=== PATIENT | male | born 1935 | race Caucasian/White ===

== ENCOUNTER 2018-07-29 14:12 | Inpatient (IN) | payer MEDICARE ==
[~2018-07-29 14:12] MED LIST: Iopamidol 370 76% 100 ML VIAL ONE; Iopamidol 370 76% 50 ML VIAL FS ONE
[2018-07-29] MEDS ORDERED: Morphine 4 MG/ML VIAL SLOW IVP PRN (15:24)
[2018-07-29] MEDS ORDERED: Aggrastat 12.5 MG/250 ML 250 ML IVPB SCH (15:30)
[2018-07-29] MEDS ORDERED: Sodium Chloride 0.9% 1,000 ML IV SCH (15:30)
[2018-07-29] MEDS ORDERED: DOPamine 400 MG/D5W 250 ML 250 ML IVPB SCH (15:30)
--- NOTE | 2018-07-29 20:00 | HP ---
CHIEF COMPLAINT: Chest pain. HISTORY OF PRESENT ILLNESS: Mr. Rendon is a very pleasant 82-year-old white gentleman, who comes to the hospital as a transferred from [place] for an inferior ST-elevation MA. He came in for 2-hour episode of chest pain, heaviness in the midsternal area to the left arm. He presented to the ER, showed ST elevations in [place], and he was airlifted over. He was taken directly from the [facility] to the finishing lab technician and imaging showed an occluded RCA, which was wired and stented with bare metal stents. Imaging of the left coronary system showed severe LAD disease and left circumflex disease that will need revascularization, may be a complex PCI versus bypass. Mr. Rendon did well during the procedure. He had two 3.0 stents placed in his RCA and his pain improved, resolved. His bradycardia also resolved. His STs resolved as well. PAST MEDICAL HISTORY: 1. Coronary artery disease with previous stent to the LAD in 1997. 2. Hypertension. 3. Hyperlipidemia. 4. Type 2 diabetes. PAST SURGICAL HISTORY: 1. Back surgery x2. 2. Ruptured Achilles tendon repair. 3. Bilateral eyelid lift. ALLERGIES: 1. PENICILLINS. 2. AMOXICILLIN. 3. CLAVULANIC ACID. 4. EXENATIDE. 5. ITRACONAZOLE. HOME MEDICATIONS: Include:. 1. Insulin. 2. Metoprolol tartrate 25 mg half a tablet twice a day. 3. Lisinopril 20 mg quarter of a tablet a day. 4. Aspirin 325 half a tablet a day. SOCIAL HISTORY: No alcohol, tobacco, or drugs. FAMILY HISTORY: Noncontributory. REVIEW OF SYSTEMS: A 12-point review of systems was done and was all negative unless stated in the history of present illness. PHYSICAL EXAMINATION: VITAL SIGNS: Temperature 97.2, pulse 70, respiratory rate 18, and saturating 98% on room. GENERAL: Awake, alert, and oriented x3. No distress. HEENT: Normocephalic and atraumatic. NECK: Supple. LUNGS: Clear. CARDIOVASCULAR: S1 and S2. No S3 or S4. There is a grade 3/6 systolic murmur in the left sternal border. ABDOMEN: Soft. Positive bowel sounds. EXTREMITIES: No edema. SKIN: Warm and dry. LABORATORY DATA: Laboratory work was reviewed. CBC unremarkable except for hemoglobin of 13, hematocrit 40, and platelets of 204. Coags were reviewed. Chemistries were reviewed. Creatinine 1.56 and glucose of 127. Troponin initially is 0.13. Lipase was 9. EKG was reviewed, inferior ST elevation. ASSESSMENT AND PLAN: 1. Acute inferior ST-elevation myocardial infarction. 2. Coronary artery disease, multivessel. 3. Status post bare-metal stent to the right coronary artery. 4. Cardiogenic shock, improving. 5. Hypertension. 6. Hyperlipidemia. 7. Type 2 diabetes. PLAN: 1. Admit to ICU. 2. We will continue Aggrastat for 2 hours and then Brilinta should be loaded and we will plan on pulling the sheath 1 hour after that. 3. He will need a staged procedure either a hybrid with bypass of the left coronary system versus complex PCI. 4. Blood pressure is too low at this time for beta garrett or SHEFALI inhibitor. We will restart in the next few days. 5. Insulin sliding scale. 6. Full code. 7. PPI for stress ulcer prophylaxis. 8. Subcutaneous Lovenox for DVT prophylaxis. 9. primary personal shopper, will follow up in the morning. Job ID: [id number]
[2018-07-29 20:56] LABS: Troponin I 25.819 ng/mL (< 0.028)
[2018-07-29 21:14] LABS: CKMB 148.3 ng/mL (0-6.6)
[2018-07-29] MEDS ORDERED: Dextrose 50% Abboject 50 ML SYRINGE IVP PRN (22:09)
[2018-07-29] MEDS ORDERED: Dextrose 5% in Water 1,000 ML IV PRN (22:09)
[2018-07-29] MEDS ORDERED: Ondansetron PF 4 MG/2 ML Vial SLOW IVP PRN (22:10)
[2018-07-29] MEDS: TICAGRELOR 90 MG TABLET PO SCH (23:00)
[2018-07-30 00:05] LABS: CKMB 154.9 ng/mL (0-6.6); Troponin I 33.624 ng/mL (< 0.028)
[2018-07-30 05:07] LABS: #Lymphocytes 1.7 thou/uL (1.20-3.40); #Monocytes 1.2 thou/uL (0.11-0.59); #Neutrophils 10.4 thou/uL (1.40-6.50); %Basophils 0.2 % (0.0-1.0); %Eosinophils 0.3 % (0.0-10.0); %Lymphocytes 12.8 % (21.0-51.0); %Monocytes 8.8 % (0.0-10.0); %Neutrophils 77.9 % (42.0-75.0); Mean Corpuscular Hemoglobin 32.2 pg (27.0-31.0); Mean Corpuscular Volume 94.7 fL (78.0-98.0); Platelet Count 183 thou/uL (130-400); Red Blood Cell (RBC) Count 4.06 mill/uL (4.70-6.10); White Blood Cell (WBC) Count 13.3 thou/uL (4.8-10.8)
[2018-07-30 05:31] LABS: ALT (SGPT) 55 U/L (8-55); AST (SGOT) 113 U/L (5-34); Albumin 3.4 g/dL (3.4-4.8); Alkaline Phosphatase 68 U/L (40-150); Anion Gap 10 mmol/L (10-20); BUN (Urea Nitrogen) 20 mg/dL (8.4-25.7); Bilirubin, Total 0.6 mg/dL (0.2-1.2); Calc. Creatinine Clearance 60 mL/min (70-130); Calcium 8.5 mg/dL (7.8-10.44); Carbon Dioxide 28 mmol/L (23-31); Chloride 102 mmol/L (98-107); Estimated GFR-MDRD 43; Globulin 2.7 g/dL (2.4-3.5); Glucose 203 mg/dL (83-110); Potassium 4.6 mmol/L (3.5-5.1); Protein, Total 6.1 g/dL (5.8-8.1); Sodium 135 mmol/L (136-145)
[2018-07-30] MEDS: HumaLOG 300 UNITS/3 ML VIAL SC PRN ×4 (07:11→22:10)
[2018-07-30] MEDS ORDERED: Prevnar 13-Val Conj/PF 0.5 ML SYRINGE IM ONE (09:00)
[2018-07-30] MEDS: Enoxaparin Sodium 40 MG/0.4 ML SYRINGE SC SCH (09:52)
[2018-07-30] MEDS: TICAGRELOR 90 MG TABLET PO SCH ×2 (09:52→21:54)
[2018-07-30 11:57] LABS: Troponin I 27.522 ng/mL (< 0.028)
--- NOTE | 2018-07-30 12:44 | PDOC.CTH ---
Cardiology Progress Note - Subjective Pt. seen and eval. by me. No overnight events. Comfortable without chest pain. s /p ptca/stent x 2 to the RCA yesterday for an inferior STEMI. - Objective Vital Signs Temp Pulse Ox 07/30/18 12:00 98.4 F 07/30/18 08:00 100 07/30/18 07:00 98.6 F 07/30/18 04:00 98.8 F Weight 257 lb 15.053 oz 07/29/18 07/30/18 07/31/18 06:59 06:59 06:59 Intake Total 1502 950 Output Total 1300 350 Balance 202 600 - Physical Examination General/Neuro: alert & oriented x3 Neck: no JVD present Lungs: CTA Heart: RRR Abdomen: other: (mild tendernes, no masses. nl. BS) - Telemetry Telemetry Rhythm: NSR - Labs Result Diagrams: 07/30/18 04:32 07/30/18 04:32 Troponin/CKMB CK-MB (CK-2) 154.9 ng/mL (0-6.6) H* 07/29/18 23:28 Troponin I 27.522 ng/mL (< 0.028) H* 07/30/18 11:07 - Assessment/Plan 1.CAD. s/p STEMI with stenting x 2 to RCA. Severe LAD stenosis is present. He had a stent to the LAD in 1997. When he i stable, if he is a candidate for CABG then thhis will be advised due to the severe dz. in the left system. 2. DM: stable at present. 3. HTN: he is still hypotensive today, likely had some RV infarct. he remains on dobutamine, taper when possible. 4. Dyslipidemia. Resume statins. He has myalgias with the statins. Will see if he can afford repatha for the chol. Review of Systems - Review of Systems EENTM: reports: no symptoms reported Respiratory: reports: no symptoms reported Cardiac (ROS): reports: no symptoms reported ABD/GI: reports: other (mild abdominal tenderness.) Musculoskeletal: reports: no symptoms reported Skin: reports: no symptoms reported Neurological: reports: no symptoms reported
[2018-07-30] MEDS ORDERED: NPH, Human Insulin Isophane 300 UNIT/3 ML VIAL SC SCH (12:45)
--- NOTE | 2018-07-30 21:10 | EKG ---
Test Reason : Blood Pressure : / mmHG Vent. Rate : 087 BPM Atrial Rate : 087 BPM P-R Int : 164 ms QRS Dur : 088 ms QT Int : 378 ms P-R-T Axes : 062 020 024 degrees QTc Int : 454 ms Normal sinus rhythm Possible Inferior infarct , age undetermined Abnormal ECG When compared with ECG of 04-FEB-2007 13:42, Borderline criteria for Inferior infarct are now Present Confirmed by Lea LAMAS ([id number]) on 07/30/2018 9:09:29 PM Referred By: Confirmed By:Lea LAMAS
--- NOTE | 2018-07-30 21:12 | EKG ---
Test Reason : Blood Pressure : / mmHG Vent. Rate : 091 BPM Atrial Rate : 091 BPM P-R Int : 140 ms QRS Dur : 080 ms QT Int : 356 ms P-R-T Axes : 046 -08 071 degrees QTc Int : 437 ms Normal sinus rhythm Low voltage QRS Inferior infarct (cited on or before 29-JUL-2018) Abnormal ECG When compared with ECG of 29-JUL-2018 16:42, (Unconfirmed) No significant change was found Confirmed by Lea LAMAS ([id number]) on 07/30/2018 9:12:03 PM Referred By: MAYRA Confirmed By:Lea LAMAS
[2018-07-30] MEDS: NPH, Human Insulin Isophane 300 UNIT/3 ML VIAL SC SCH (21:53)
--- NOTE | 2018-07-31 00:53 | CON ---
DATE OF CONSULTATION: 07/30/2018 HISTORY OF PRESENT ILLNESS: Mr. Rendon is an 82-year-old male presenting with chest discomfort. It was radiating to his left arm. He went straight to the hospital laboratory technician. He was defibrillated twice in the hospital laboratory technician. He had coronary stenting performed by Dr. Steinberg. He denies having chest pain or shortness of breath. I was consulted because of his presence in the Critical Care Unit. PAST MEDICAL HISTORY: 1. Remarkable for previous coronary stenting to his LAD 20 years ago. 2. Hypertension. 3. Lipid disorder. 4. Diabetes. He takes 110 units of NPH a day and 30 units total of regular insulin twice a day. He checks his blood sugar in the morning. PAST SURGICAL HISTORY: 1. Remarkable for a back surgery. 2. Achilles tendon rupture. 3. Eyelid surgery. ALLERGIES: REPORTS ALLERGIES TO PENICILLIN AND ITRACONAZOLE. MEDICATIONS: Prior to admission, 1. He was on insulin as mentioned above. 2. Metoprolol. 3. Lisinopril. 4. Aspirin. SOCIAL HISTORY: He is a nonsmoker, nondrinker, nondrug user. FAMILY HISTORY: He reports family history negative for lung disease in early age. REVIEW OF SYSTEMS: A 12-point review of system completed, otherwise negative except for the history above. Again, he denies having any chest pain or shortness of breath at this time. He is complaining of low back discomfort. He says his back always hurts. PHYSICAL EXAMINATION: GENERAL: Mr. Rendon is an 82-year-old male. VITAL SIGNS: His heart rate is 93, blood pressure 126/51, respiratory rate 17, oximetry is 97. HEENT: Pupils are equal sclerae, anicteric. NECK: Supple. No lymphadenopathy LUNGS: Clear. HEART: Regular rhythm. S1, S2 normal. ABDOMEN: Soft and nontender. EXTREMITIES: Without clubbing, cyanosis or edema. LABORATORY DATA: White count is 13.3, hemoglobin 13.0, platelets 183. Sodium 135, potassium 4.6, chloride 102, bicarb 28, BUN 20, creatinine 1.54. His creatinine was 1.56 yesterday. IMPRESSION: Myocardial infarction with peak troponin as of last night of 33, status post percutaneous intervention, appears stable at this time. We will be happy to follow with the other physicians caring for him. TIME SPENT: This was a 70-minute consult, with greater than 50% of the time spent on the unit coordinating care, reviewing records. Job ID: [id number] MTDJuan
[2018-07-31] MEDS: NPH, Human Insulin Isophane 300 UNIT/3 ML VIAL SC SCH ×2 (09:25→21:09)
[2018-07-31] MEDS: Enoxaparin Sodium 40 MG/0.4 ML SYRINGE SC SCH (09:25)
[2018-07-31] MEDS: TICAGRELOR 90 MG TABLET PO SCH ×2 (09:35→21:06)
[2018-07-31] MEDS: HumaLOG 300 UNITS/3 ML VIAL SC PRN ×2 (12:32→21:39)
[2018-07-31] MEDS ORDERED: Ubidecarenone 50 MG CAP PO SCH ×2 (18:00→22:00)
[2018-07-31] MEDS: Carvedilol 3.125 MG TAB PO SCH (21:04)
[2018-07-31] MEDS: Pitavastatin Calcium 2 MG TAB PO SCH (21:06)
--- NOTE | 2018-07-31 22:25 | PRG ---
DATE OF SERVICE: 07/31/2018 SUBJECTIVE: Kiko Rendon did well overnight. He had no tachyarrhythmias. He is afebrile. OBJECTIVE: VITAL SIGNS: Blood pressure 123/69 and respiratory rate 18. GENERAL: He is in no distress. LUNGS: Clear. HEART: Regular rhythm. S1 and S2 are normal. ABDOMEN: Soft and nontender. EXTREMITIES: Without clubbing, cyanosis, or edema. He has no new lab other than blood glucoses. IMPRESSION: 1. Status post emergent cardiac catheterization for an ST-elevation myocardial infarction with coronary stenting. 2. Other coronary issues will need to be addressed at a later date. 3. Status post defibrillation x2. 4. Diabetes, on a very large dose of insulin prior to admission. I suspect he was eating to keep up with his insulin. He would probably be better served with a different brand of insulin besides NPH. At this point in time, we will continue the NPH and Humalog sliding scale. He is getting by on 30 units total of NPH a day plus a sliding scale. He was on 110 units of NPH prior to admission plus sometimes 30 or more units of Humalog. He will be stable to transfer out of the Critical Care Unit if the wet mixer agree. Job ID: [id number]
[2018-07-31 22:51] VITALS: BMI 39.3
[2018-08-01] MEDS: HumaLOG 300 UNITS/3 ML VIAL SC PRN ×4 (06:06→20:31)
[2018-08-01] MEDS: Carvedilol 3.125 MG TAB PO SCH (09:03)
[2018-08-01] MEDS: Enoxaparin Sodium 40 MG/0.4 ML SYRINGE SC SCH (09:04)
[2018-08-01] MEDS: NPH, Human Insulin Isophane 300 UNIT/3 ML VIAL SC SCH ×2 (09:05→20:30)
[2018-08-01] MEDS: TICAGRELOR 90 MG TABLET PO SCH ×2 (09:07→20:28)
[2018-08-01] MEDS ORDERED: Cetirizine HCl 10 MG TAB PO SCH (16:15)
[2018-08-01] MEDS: Carvedilol 6.25 MG TAB PO SCH (16:51)
[2018-08-01] MEDS ORDERED: Ubidecarenone 50 MG CAP PO SCH (18:00)
--- NOTE | 2018-08-01 19:02 | PRG ---
DATE OF SERVICE: 08/01/2018 SUBJECTIVE: Kiko Rendon did well overnight. He has no complaints. He has had no chest pain. OBJECTIVE: VITAL SIGNS: He is afebrile. Blood pressure 145/71, respiratory rate 16, oximetry is 96% on room air. LUNGS: Clear. HEART: Regular rhythm. ABDOMEN: Soft. LABORATORY DATA: No new lab or other blood glucoses. We added an antihistamine at his request because of sinus congestion. Describes feeling plugged up. He says he just getting over an allergy attack prior to his admission. He has no complaints today. He tells me it is anticipated that he will go home tomorrow. He does not need to go home on the super high doses of insulin he was on before obviously. We will continue to follow the other physicians. Job ID: [id number]
[2018-08-01] MEDS: Pitavastatin Calcium 2 MG TAB PO SCH (20:28)
[2018-08-02 05:10] LABS: Anion Gap 14 mmol/L (10-20); BUN (Urea Nitrogen) 21 mg/dL (8.4-25.7); Calc. Creatinine Clearance 61 mL/min (70-130); Calcium 8.8 mg/dL (7.8-10.44); Carbon Dioxide 23 mmol/L (23-31); Chloride 102 mmol/L (98-107); Estimated GFR-MDRD 47; Glucose 181 mg/dL (83-110); Potassium 4.2 mmol/L (3.5-5.1); Sodium 135 mmol/L (136-145)
[2018-08-02] MEDS: HumaLOG 300 UNITS/3 ML VIAL SC PRN ×2 (06:05→12:28)
[2018-08-02] MEDS ORDERED: Cetirizine HCl 10 MG TAB PO SCH (09:00)
[2018-08-02] MEDS: Carvedilol 6.25 MG TAB PO SCH ×2 (09:30→18:05)
[2018-08-02] MEDS: NPH, Human Insulin Isophane 300 UNIT/3 ML VIAL SC SCH (09:32)
[2018-08-02] MEDS: Enoxaparin Sodium 40 MG/0.4 ML SYRINGE SC SCH (09:37)
[2018-08-02] MEDS: TICAGRELOR 90 MG TABLET PO SCH (11:55)
--- NOTE | 2018-08-02 12:24 | PDOC.CTH ---
Cardiology Progress Note - Subjective The pt seen and examined. No overnight events. No cardiac complaints. Questions are answered to the pt and family. - Objective Vital Signs Temp Pulse Pulse Pulse Resp BP BP 08/02/18 11:19 97.5 F L 85 20 08/02/18 09:42 93 88 148/53 H 08/02/18 09:30 145/71 H 08/02/18 07:27 97.6 F 87 20 08/02/18 04:20 98.4 F 87 16 BP BP Pulse Ox Pulse Ox Pulse Ox 08/02/18 11:19 108/53 L 96 08/02/18 09:42 115/56 L 100 96 08/02/18 09:30 08/02/18 07:27 131/65 96 08/02/18 04:20 100/58 L 93 L Weight 245 lb 9.6 oz 08/01/18 08/02/18 08/03/18 06:59 06:59 06:59 Intake Total 1070 2180 360 Output Total 2575 2850 Balance -1505 -670 360 - Physical Examination General/Neuro: alert & oriented x3 Neck: no JVD present Lungs: CTA Heart: RRR Abdomen: soft Extremities: other: (No edema) - Telemetry Telemetry Rhythm: SR 90s - Labs Result Diagrams: 07/30/18 04:32 08/02/18 04:18 Troponin/CKMB CK-MB (CK-2) 154.9 ng/mL (0-6.6) H* 07/29/18 23:28 Troponin I 27.522 ng/mL (< 0.028) H* 07/30/18 11:07 - Assessment/Plan 1. CAD with hx of stent in LAD in 1997 and S/p STEMI with BMS x 2 to RCA on - Severe LAD stenosis is present. Plan for CABG within 1 month. On Coreg, ASA, Brilinta bid, and Livalo 2mg qd. 2. Insulin depended DM: stable at present. 3. HTN: stable with Coreg. 4. Dyslipidemia with hx of myalgias with the statins - on Livalo 2mg qd. Cont. to monitor and may start repatha if he cannot tolerate. MAR reviewed * From Cardiac standpoint, the pt is stable to d/c home after seen by CT surgeon. * The pt will f/u with Dr Flannery' office within 1-2wks. * Sloan [place]lando and Livalo sample given to the pt today. Pt. seen and eval. by me. I agree with the A/P by the PEOPLESOFT ADMINISTRATOR. Hopefully he will do well over the next 4-6 weeks and then plan for CABG to the LAD.Chest clear. RRR. No edema. Review of Systems - Review of Systems Constitutional: reports: no symptoms reported EENTM: reports: no symptoms reported Respiratory: reports: no symptoms reported Cardiac (ROS): reports: no symptoms reported ABD/GI: reports: no symptoms reported : reports: no symptoms reported Musculoskeletal: reports: no symptoms reported Skin: reports: no symptoms reported
[2018-08-02 15:38] VITALS: TEMP 97.9
[2018-08-02 18:05] VITALS: BP 145/71
--- NOTE | 2018-08-02 21:29 | CON ---
DATE OF CONSULTATION: HISTORY OF PRESENT ILLNESS: This is an 82-year-old gentleman admitted to the hospital on 07/29 with an acute inferior TX with an occluded right coronary artery filling from left-sided collaterals. He underwent bare metal stenting by Dr. Steinberg of his right coronary artery, but had significant disease in his LAD and circumflex system. Possible targets included the diagonal and LAD in one or two spots due to distal disease, a large obtuse marginal and possibly a distal circumflex. Left ventricular ejection fraction was preserved on echo. His risk factors include obesity, hypertension, dyslipidemia, diabetes mellitus, and remote smoking history. PAST SURGICAL HISTORY: Includes back surgery on two occasions, bilateral cataracts, bilateral eyelid lift, ruptured Achilles tendon, appendectomy, and knee surgery. SOCIAL HISTORY: The patient is retired from the [employer]. He is , accompanied by his daughter who is a nurse here for many years. They live in [place] in a mobile home. MEDICATIONS: Include: 1. Aspirin 81 a day. 2. Coreg 6.25 b.i.d. 3. Coenzyme Q. 4. Livalo 2 mg daily. 5. Brilinta 90 mg b.i.d. His home medicines include: Insulin Novolin 55 b.i.d., NovoLog 10-15 b.i.d., as well as losartan 25 a day. ALLERGIES: INCLUDE AMOXICILLIN, SPORANOX, BYETTA, AND AUGMENTIN. PHYSICAL EXAMINATION: GENERAL: Gentleman appearing his stated age. VITAL SIGNS: Height 5 feet 7 inches, weight 245 pounds. NECK EXAMINATION: No carotid bruits. CARDIAC EXAMINATION: Regular rate and rhythm with soft systolic murmur. LUNGS: Clear to auscultation. EXTREMITIES: He has palpable femoral and popliteal pulses, and I do not appreciate any pedal pulses. He had no peripheral edema. ABDOMEN: Obese, nontender. At this time, the patient is on Brilinta for the next month and can plan on surgical intervention when he has completed his course of Brilinta and has been off it for one week. I have gone over the procedure, risks, complications, and expectations with the family. Additional diagnosis includes renal insufficiency with a creatinine of 1.44. I do not have a hemoglobin A1c as hemoglobin was 13 on admission. Job ID: [id number]
--- NOTE | 2018-08-03 14:33 | DIS ---
DATE OF ADMISSION: 07/29/2018 DATE OF DISCHARGE: 08/02/2018 PRIMARY FOOD ASSEMBLER KITCHEN: Dr. Kira Flannery. DISCHARGE DISPOSITION: To home. PRIMARY DISCHARGE DIAGNOSIS: Coronary artery disease, status post angioplasty and bare-metal stent placement on July 29, 2018. SECONDARY DISCHARGE DIAGNOSES: 1. Hypertension. 2. Hyperlipidemia. 3. Insulin-dependent diabetes. 4. Ex-smoker. PRIMARY PROCEDURE AND OPERATION: Cardiac catheterization with angioplasty and bare-metal stent placement x2 to right coronary arteries on July 29, 2018. RADIOLOGICAL INTERVENTION: Echocardiogram with EF of 50% to 55% suggestive of diastolic dysfunction, mild mitral valve regurgitation, and mild tricuspid regurgitation. DISCHARGE MEDICATIONS: 1. Aspirin 81 mg once a day. 2. Carvedilol 6.25 mg twice a day. 3. Livalo 2 mg once a day at night. 4. Brilinta 90 mg twice a day. 5. Coenzyme Q10 40 mg once a day. RESUMING MEDICATION/HOME MEDICATION: 1. Insulin NovoLog. 2. Insulin NPH. 3. Tumeric. 4. [place]-3. 5. Chlortabs. CONTRAINDICATION OF MEDICATION: None. CODE STATUS: Full code. DISCHARGE PLANS: The patient will follow up with Dr. Flannery' office within 1-2 weeks. The patient is planned to undergo CABG 1 week after he completes 1 month of Brilinta treatment. The patient and the family member already discussed with CV surgeon during this admission about CABG. HOSPITAL COURSE: Mr. Rendon is an 82-year-old male with a significant history of insulin-dependent diabetes and hypertension. The patient was transferred [facility] to [facility] for inferior ST-elevation [place]. At home, the patient experienced an episode of chest pain and heaviness to the mediastinal area, which radiated to the left arm. The patient underwent emergency cardiac catheterization with angioplasty and bare-metal stent placement x2 to right coronary arteries. The imaging of left coronary system showed severe LAD disease and left circumflex disease that will need revascularization for which the patient will undergo CABG hopefully within 1 month. This moment at discharge, the patient denies any chest pain, discomfort, palpitation, fluttering in his chest, dizziness, lightheadedness, or numbness to the left upper arm or pressure to neck or any other cardiac complaints. All the patient's questions and concerns are answered and the patient and family member voiced understanding. The patient was seen and examined at the bedside today. Job ID: [id number]
== END 2018-08-02 18:29 | disposition home or self-care (01) | DRG 248 ==
LOC: CCU 14:30 → SURG A 21:14 → CCU 21:15 → 2SW 07-31 21:54
PROVIDERS: ADMIT Internal Medicine Cardiovascular Disease; ATTEND Internal Medicine Cardiovascular Disease
PROC: 02703EZ Dilation of Coronary Artery, One Artery with Two Intraluminal Devices, Percutaneous Approach (ICD-10-PCS; principal; 2018-07-29)
PROC: 4A023N7 Measurement of Cardiac Sampling and Pressure, Left Heart, Percutaneous Approach (ICD-10-PCS; 2018-07-29)
PROC: B2111ZZ Fluoroscopy of Multiple Coronary Arteries using Low Osmolar Contrast (ICD-10-PCS; 2018-07-29)
PROC: B2151ZZ Fluoroscopy of Left Heart using Low Osmolar Contrast (ICD-10-PCS; 2018-07-29)
DX: I21.19 ST elevation (STEMI) myocardial infarction involving other coronary artery of inferior wall (principal); R57.0 Cardiogenic shock; I25.10 Atherosclerotic heart disease of native coronary artery without angina pectoris; E78.5 Hyperlipidemia, unspecified; E11.9 Type 2 diabetes mellitus without complications; I10 Essential (primary) hypertension; Z88.0 Allergy status to penicillin; Z79.4 Long term (current) use of insulin; Z79.82 Long term (current) use of aspirin
CPT/HCPCS: 36415; 36416; 37212; 80048; 80053; 82553; 84484; 85025; 85347; 90471; 90670; 92941; 92960; 93005; 93010; 93306; 93458; 93798; C1769; C1876; C1887; G0009; J1265; J1650; J1815; J2405

== ENCOUNTER 2018-09-07 09:21 | Outpatient (CLI) | payer MEDICARE | END 2018-09-07 09:22 | disposition home or self-care (01) | LOC: LABBT 09:21 | PROVIDERS: ATTEND Thoracic Surgery (Cardiothoracic Vascular Surgery) | DX: Z01.812 Encounter for preprocedural laboratory examination (principal); I25.10 Atherosclerotic heart disease of native coronary artery without angina pectoris | CPT/HCPCS: 80048; 85025; 86850; 86900; 86901 ==

== ENCOUNTER 2018-09-08 05:50 | Inpatient (IN) | payer MEDICARE ==
[2018-09-07 16:01] LABS: #Eosinphils 0.3 thou/uL (0.0-0.7); #Lymphocytes 1.7 thou/uL (1.20-3.40); #Monocytes 0.4 thou/uL (0.11-0.59); #Neutrophils 2.7 thou/uL (1.40-6.50); %Basophils 0.4 % (0.0-1.0); %Eosinophils 5.9 % (0.0-10.0); %Lymphocytes 33.7 % (21.0-51.0); %Monocytes 7.2 % (0.0-10.0); %Neutrophils 52.9 % (42.0-75.0); Hemoglobin 12.9 g/dL (14.0-18.0); Mean Corpuscular HGB CONC 33.4 g/dL (32.0-36.0); Mean Corpuscular Hemoglobin 32.3 pg (27.0-31.0); Mean Corpuscular Volume 96.7 fL (78.0-98.0); Mean Platelet Volume 8.3 fL (7.4-10.4); Platelet Count 126 thou/uL (130-400); RBC Distribution Width 12.8 % (11.5-14.5); Red Blood Cell (RBC) Count 3.99 mill/uL (4.70-6.10); White Blood Cell (WBC) Count 5.1 thou/uL (4.8-10.8)
[2018-09-07 16:13] LABS: Anion Gap 12 mmol/L (10-20); BUN (Urea Nitrogen) 20 mg/dL (8.4-25.7); Calc. Creatinine Clearance 0 mL/min (70-130); Calcium 9.4 mg/dL (7.8-10.44); Carbon Dioxide 26 mmol/L (23-31); Chloride 102 mmol/L (98-107); Estimated GFR-MDRD 52; Glucose 196 mg/dL (83-110); Potassium 4.3 mmol/L (3.5-5.1); Sodium 136 mmol/L (136-145)
[2018-09-08] MEDS ORDERED: Levofloxacin 500 mg/D5W 100 ml Premix Bag ONE (06:22)
[2018-09-08] MEDS ORDERED: Clindamycin/D5W 900 mg/50 ml Premix Bag ONE (06:22)
[2018-09-08] MEDS ORDERED: Albumin 5% 500 ML ONE ×2 (06:23→06:40)
[2018-09-08] MEDS ORDERED: Heparin 10,000 UNITS/1 ML VIAL 30,000 UNITS in Sodium Chloride 0.9% 1,000 ML FS SCH (06:30)
[2018-09-08] MEDS ORDERED: Midazolam HCl 5 mg/5 ml Vial ONE (06:42)
[2018-09-08] MEDS ORDERED: Dexmedetomidine 200 MCG/2 ML VIAL ONE (06:42)
[2018-09-08] MEDS ORDERED: Fentanyl 250 MCG/5 ML VIAL ONE (06:42)
[2018-09-08] MEDS ORDERED: Vecuronium 10 MG VIAL ONE ×2 (06:42→13:40)
[2018-09-08] MEDS ORDERED: Norepinephrine 8 MG/0.9% NS 250 ML ONE (06:43)
[2018-09-08] MEDS ORDERED: Midazolam HCl 2 mg/2 ml Vial ONE (07:05)
[2018-09-08] MEDS ORDERED: Dexamethasone 4 mg/ml Vial ONE (07:22)
[2018-09-08] MEDS ORDERED: Bupivacaine HCl 0.5%/Epinephrine 1:200,000/PF 30 ml Vial ONE (07:22)
[2018-09-08 08:13] LABS: Actual Bicarbonate (HCO3a) 21.2 mEq/L (22-28); Base Excess (BEa) -1.9 mEq/L (-2.0 to +3.0); CO2 Tension 31.1 mmHg (35.0-45.0); Calcium, Ionized 1.13 mmol/L (1.12-1.30); Carboxyhemoglobin (COHb) 0.8 gm% (0.0-3.0); Hemoglobin (Hb) 12.4 g/dL (14.0-18.0); O2 Tension (PaO2) 351.2 mmHg (> 60.0); Potassium - ABG Lab 3.69 mmol/L (3.70-5.30); pH, Arterial 7.45 (7.35-7.45)
[2018-09-08 09:09] LABS: Actual Bicarbonate (HCO3a) 23.1 mEq/L (22-28); Base Excess (BEa) -1.8 mEq/L (-2.0 to +3.0); CO2 Tension 39.7 mmHg (35.0-45.0); Calcium, Ionized 1.12 mmol/L (1.12-1.30); Carboxyhemoglobin (COHb) 0.5 gm% (0.0-3.0); Hemoglobin (Hb) 11.9 g/dL (14.0-18.0); O2 Tension (PaO2) 497.7 mmHg (> 60.0); Potassium - ABG Lab 4.09 mmol/L (3.70-5.30); pH, Arterial 7.38 (7.35-7.45)
[2018-09-08] MEDS ORDERED: PHENYLEPHRINE-NS 100 MCG/ML 10 ML SYRINGE ONE (09:46)
[2018-09-08 09:51] LABS: Actual Bicarbonate (HCO3v) 45 mEq/L (22-28); Base Excess 18.7 mEq/L (-2.0 to +3.0); Calcium, Ionized 0.84 mmol/L (1.16-1.32); Chloride (ABG LAB) 104 mmol/L (98-106); Hemoglobin (Hb) 7.6 g/dL (12.6-17.4); Potassium - ABG Lab 3.85 mmol/L (3.70-5.30); Sodium 153.1 mmol/L (133-146); pH (venous) 7.46 (7.32-7.43)
[2018-09-08 09:53] LABS: Actual Bicarbonate (HCO3a) 21.6 mEq/L (22-28); Base Excess (BEa) -1.8 mEq/L (-2.0 to +3.0); CO2 Tension 30.9 mmHg (35.0-45.0); Calcium, Ionized 0.97 mmol/L (1.12-1.30); O2 Tension (PaO2) 486.3 mmHg (> 60.0); Potassium - ABG Lab 4.26 mmol/L (3.70-5.30); pH, Arterial 7.46 (7.35-7.45)
[2018-09-08 10:28] LABS: Actual Bicarbonate (HCO3a) 22.6 mEq/L (22-28); Base Excess (BEa) -2.8 mEq/L (-2.0 to +3.0); CO2 Tension 41.6 mmHg (35.0-45.0); Calcium, Ionized 1.05 mmol/L (1.12-1.30); Carboxyhemoglobin (COHb) 0.7 gm% (0.0-3.0); Hemoglobin (Hb) 9.1 g/dL (14.0-18.0); O2 Tension (PaO2) 311.4 mmHg (> 60.0); Potassium - ABG Lab 4.65 mmol/L (3.70-5.30); pH, Arterial 7.35 (7.35-7.45)
[2018-09-08 11:15] LABS: Actual Bicarbonate (HCO3a) 21.3 mEq/L (22-28); Base Excess (BEa) -3.2 mEq/L (-2.0 to +3.0); CO2 Tension 36.2 mmHg (35.0-45.0); Calcium, Ionized 1.11 mmol/L (1.12-1.30); Carboxyhemoglobin (COHb) 0.6 gm% (0.0-3.0); Hemoglobin (Hb) 9.2 g/dL (14.0-18.0); O2 Tension (PaO2) 469.6 mmHg (> 60.0); Potassium - ABG Lab 4.45 mmol/L (3.70-5.30); pH, Arterial 7.39 (7.35-7.45)
[2018-09-08] MEDS ORDERED: hydrALAZINE 20 MG/ML VIAL SLOW IVP PRN (11:49)
[2018-09-08] MEDS ORDERED: Phenylephrine 10 MG/NS 250 ML 250 ML IVPB PRN (11:49)
[2018-09-08] MEDS ORDERED: Acetaminophen 325 MG TAB PO PRN (11:49)
[2018-09-08] MEDS ORDERED: Post-Op Insulin Drip Protocol IVPB ONE (11:49)
[2018-09-08] MEDS ORDERED: niCARdipine HCl 25 MG in Sodium Chloride 0.9% 250 ML 240 ML IVPB PRN (11:49)
[2018-09-08] MEDS ORDERED: Guaifenesin DM 100-10/5 ML UDCUP PO PRN (11:49)
[2018-09-08] MEDS ORDERED: Fentanyl 100 MCG/2 ML VIAL SLOW IVP PRN ×2 (11:49)
[2018-09-08] MEDS ORDERED: Hetastarch 6% 500 ML 500 ML IVPB PRN (11:49)
[2018-09-08] MEDS ORDERED: Mag-Al 1200 mg/1200 mg/30 ML UDCUP PO PRN (11:49)
[2018-09-08] MEDS ORDERED: Promethazine HCl 25 MG/ML VIAL IM PRN (11:49)
[2018-09-08] MEDS ORDERED: Bisacodyl 5 MG TAB PO PRN (11:49)
[2018-09-08] MEDS ORDERED: DOPamine 400 MG/D5W 250 ML 250 ML IVPB PRN (11:49)
[2018-09-08] MEDS ORDERED: HYDROcodone/Acetaminophen 5/325 mg Tablet PO PRN (11:49)
[2018-09-08] MEDS ORDERED: Nitroglycerin 50 MG/250 ML BOT 250 ML IVPB PRN (11:49)
[2018-09-08] MEDS ORDERED: Bisacodyl 10 MG SUPP PR PRN (11:49)
[2018-09-08] MEDS ORDERED: Morphine 2 MG/ML SYRINGE SLOW IVP PRN (11:49)
[2018-09-08] MEDS ORDERED: Norepinephrine 8 MG/0.9% NS 250 ML IVPB PRN (11:49)
[2018-09-08] MEDS ORDERED: Potassium Chloride 20 MEQ/100 ML PREMIX BAG IVPB PRN (11:49)
[2018-09-08] MEDS ORDERED: Ondansetron PF 4 MG/2 ML Vial IVP PRN (11:49)
[2018-09-08] MEDS: Sodium Chloride 0.9% 1,000 ML IV SCH ×2 (12:20→20:27)
[2018-09-08] MEDS ORDERED: Dextrose 50% Abboject 50 ML SYRINGE SLOW IVP PRN (12:20)
[2018-09-08] MEDS ORDERED: Dextrose 5% in Water 1,000 ML IV PRN (12:20)
[2018-09-08] MEDS ORDERED: HUMULIN R 100 UNITS in Sodium Chloride 0.9% 100 ML IVPB SCH (12:20)
[2018-09-08] MEDS ORDERED: Magnesium 2 GM/50 ML 2 GM in Premix Bag 1 BAG IVPB SCH (12:30)
[2018-09-08 12:31] LABS: Actual Bicarbonate (HCO3a) 20.6 mEq/L (22-28); Base Excess (BEa) -5.7 mEq/L (-2.0 to +3.0); Calcium, Ionized 1.07 mmol/L (1.12-1.30); Carboxyhemoglobin (COHb) 0.5 gm% (0.0-3.0); Hemoglobin (Hb) 10.7 g/dL (14.0-18.0); O2 Tension (PaO2) 215.5 mmHg (> 60.0); Potassium - ABG Lab 4.57 mmol/L (3.70-5.30); Puncture Site LINE; pH, Arterial 7.29 (7.35-7.45)
[2018-09-08] MEDS: Ketorolac Tromethamine 30 MG/ML VIAL IVP SCH ×2 (12:33→17:45)
[2018-09-08] MEDS: Clindamycin/D5W 900 MG in Premix Bag 1 BAG IVPB SCH ×2 (12:34→17:46)
[2018-09-08 12:55] LABS: #Eosinphils 0.2 thou/uL (0.0-0.7); #Lymphocytes 1.6 thou/uL (1.20-3.40); #Monocytes 0.6 thou/uL (0.11-0.59); #Neutrophils 9.3 thou/uL (1.40-6.50); %Basophils 0.1 % (0.0-1.0); %Eosinophils 1.7 % (0.0-10.0); %Lymphocytes 13.8 % (21.0-51.0); %Neutrophils 79.4 % (42.0-75.0); Hemoglobin 10.3 g/dL (14.0-18.0); Mean Corpuscular HGB CONC 33.3 g/dL (32.0-36.0); Mean Corpuscular Hemoglobin 31.7 pg (27.0-31.0); Mean Corpuscular Volume 95.3 fL (78.0-98.0); Mean Platelet Volume 8.6 fL (7.4-10.4); Platelet Count 171 thou/uL (130-400); RBC Distribution Width 12.9 % (11.5-14.5); Red Blood Cell (RBC) Count 3.23 mill/uL (4.70-6.10); White Blood Cell (WBC) Count 11.8 thou/uL (4.8-10.8)
[2018-09-08 12:58] LABS: INR-International Normal Ratio 1.5; PTT 36.7 SEC (22.9-36.1); Prothrombin Time 18.5 SEC (12.0-14.7)
[2018-09-08 13:16] LABS: Anion Gap 11 mmol/L (10-20); BUN (Urea Nitrogen) 17 mg/dL (8.4-25.7); Calc. Creatinine Clearance 72 mL/min (70-130); Calcium 7.9 mg/dL (7.8-10.44); Carbon Dioxide 22 mmol/L (23-31); Chloride 108 mmol/L (98-107); Estimated GFR-MDRD 63; Glucose 177 mg/dL (83-110); Potassium 4.8 mmol/L (3.5-5.1); Sodium 136 mmol/L (136-145)
[2018-09-08] MEDS: Insulin Regular 300 UNITS/3 ML VIAL SC PRN (13:17)
--- NOTE | 2018-09-08 13:29 | RAD ---
PORTABLE AP CHES XRAY: DATE: 09/08/2018. HISTORY: Post open heart surgery. COMPARISON: 07/29/2018. FINDINGS: There have been interval postsurgical changes related to median sternotomy. Endotracheal tube is not ed in place with tip overlying the T3-4 level and above the level of the romero. Mediastinal drain i s noted in place. The catheter overlies the right chest which may be related to overlying monitor le ad or possibly a thoracostomy tube. This is difficult to definitely delineate on this exam. Right s ubclavian central venous catheter is noted in place, but the catheter extends superiorly to overlie t he right neck and tip is not visualized. The cardiac silhouette and pulmonary vasculature are within normal limits. Mild atelectasis is seen in the right mid lung zone. Lungs otherwise appear clear. No other interval change. IMPRESSION: Interval postsurgical changes with lines and tubes in place as described above. The right subclavian central venous catheter does overlie the right neck. POS: ABRAHAM
[2018-09-08] MEDS ORDERED: PROPOFOL 200 MG/20 ML VIAL ONE (13:40)
[2018-09-08] MEDS ORDERED: Heparin 5,000 UNITS/ML VIAL ONE (13:40)
[2018-09-08] MEDS ORDERED: Sodium Bicarb 50 MEQ/50 ML VIAL ONE (13:40)
[2018-09-08] MEDS ORDERED: Magnesium 5 GM/10 ML VIAL ONE (13:40)
[2018-09-08] MEDS ORDERED: Papaverine 60 MG/2 ML VIAL ONE (13:40)
[2018-09-08] MEDS ORDERED: Lidocaine 2% PF 100 mg/5 ml Syringe ONE (13:40)
[2018-09-08] MEDS ORDERED: Glycopyrrolate 0.2 MG/ML 5 ML SYRINGE ONE (13:40)
[2018-09-08] MEDS ORDERED: Potassium Chloride 60 MEQ/30 ML VIAL ONE (13:40)
[2018-09-08] MEDS ORDERED: Aminocaproic Acid 5 GM/20 ML VIAL ONE (13:40)
[2018-09-08] MEDS ORDERED: Heparin 30,000 units/30 ml VIAL ONE (13:40)
[2018-09-08] MEDS ORDERED: Cardioplegic Soln 1,000 ML BAG ONE (13:40)
[2018-09-08] MEDS ORDERED: Thrombin 5000 UNITS/5 ML VIAL ONE (13:40)
[2018-09-08] MEDS ORDERED: Protamine Sulfate 250 MG/25 ML VIAL ONE (13:40)
[2018-09-08] MEDS ORDERED: Mannitol 12.5 GM/50 ML ONE (13:40)
[2018-09-08] MEDS ORDERED: Ondansetron PF 4 MG/2 ML Vial ONE (13:40)
[2018-09-08] MEDS ORDERED: Calcium Chloride 1 GM/10 ML Abboject SYRINGE ONE (13:40)
[2018-09-08 18:54] LABS: Potassium 4.5 mmol/L (3.5-5.1)
[2018-09-08] MEDS: Simvastatin 40 MG TAB PO SCH (20:05)
[2018-09-08] MEDS: Famotidine/PF 20 mg/2ml Vial SLOW IVP SCH (20:05)
[2018-09-09] MEDS: Clindamycin/D5W 900 MG in Premix Bag 1 BAG IVPB SCH ×2 (00:14→05:53)
[2018-09-09] MEDS: Ketorolac Tromethamine 30 MG/ML VIAL IVP SCH ×2 (00:15→05:53)
[2018-09-09] MEDS: HYDROcodone/Acetaminophen 5/325 mg Tablet PO PRN ×2 (00:16→18:26)
[2018-09-09 04:34] LABS: #Lymphocytes 0.9 thou/uL (1.20-3.40); #Monocytes 0.8 thou/uL (0.11-0.59); %Basophils 0.1 % (0.0-1.0); %Eosinophils 0.2 % (0.0-10.0); %Lymphocytes 9.1 % (21.0-51.0); %Monocytes 8.1 % (0.0-10.0); %Neutrophils 82.6 % (42.0-75.0); Hemoglobin 8.4 g/dL (14.0-18.0); Mean Corpuscular HGB CONC 33.4 g/dL (32.0-36.0); Mean Corpuscular Hemoglobin 32.4 pg (27.0-31.0); Mean Platelet Volume 8.1 fL (7.4-10.4); Platelet Count 131 thou/uL (130-400); Red Blood Cell (RBC) Count 2.58 mill/uL (4.70-6.10); White Blood Cell (WBC) Count 9.7 thou/uL (4.8-10.8)
[2018-09-09 04:55] LABS: Anion Gap 15 mmol/L (10-20); BUN (Urea Nitrogen) 19 mg/dL (8.4-25.7); Calc. Creatinine Clearance 61 mL/min (70-130); Calcium 8.1 mg/dL (7.8-10.44); Carbon Dioxide 17 mmol/L (23-31); Chloride 108 mmol/L (98-107); Estimated GFR-MDRD 51; Glucose 123 mg/dL (83-110); Potassium 4.3 mmol/L (3.5-5.1); Sodium 136 mmol/L (136-145)
[2018-09-09] MEDS ORDERED: Sodium Bicarb 50 MEQ/50 ML Abboject 8.4% SYRINGE IVP SCH ×2 (06:45→08:45)
[2018-09-09] MEDS: Sodium Chloride 0.9% 1,000 ML IV SCH ×2 (07:29→16:49)
[2018-09-09] MEDS: Famotidine/PF 20 mg/2ml Vial SLOW IVP SCH ×2 (07:55→20:14)
--- NOTE | 2018-09-09 08:13 | RAD ---
CHEST 1 VIEW: Date: 09/09/18 HISTORY: Status post open heart surgery. COMPARISON: 09/08/18. FINDINGS: Interval removal of endotracheal tube. Redemonstration of mediastinal drainage catheters, right-sided chest tube, right-sided vascular catheter. Stable aeration of lung parenchyma. No significant pleura l effusion or pneumothorax. Sternotomy wires are redemonstrated. IMPRESSION: Findings compatible with recent open heart surgery. POS: CET
--- NOTE | 2018-09-09 08:59 | OP ---
DATE OF PROCEDURE: 09/08/2018 PREOPERATIVE DIAGNOSIS: Coronary artery disease. PROCEDURE PERFORMED: Coronary artery bypass graft x4, good quality left internal mammary artery to a 2-mm mid left anterior descending; saphenous vein of good quality to a 2-mm obtuse marginal, a 1.5-mm diagonal, and a 1-mm distal circumflex, that probably should not have been opened. RECYCLING MANAGER: Keo Alvarez M.D. ANESTHESIA: General. TRANSFUSION: One platelet bag. DESCRIPTION OF PROCEDURE: After adequate anesthesia had been obtained, the patient was prepped and draped. Dr. Alvarez performed an endovascular vein harvest of the right greater saphenous vein while I performed median sternotomy entering the right pleura with the saw. No midline fascia could be identified inferiorly. After placement of the retractor and mobilizing the pericardial fat, the sternal retractor was removed, and the LUCIANO retractor was placed, and the left internal mammary artery was harvested. The patient was heparinized. The mammary divided distally and passed posterior to the thymus gland. Aorta and right atrium were cannulated, and cardiopulmonary bypass was begun. Vessels were inspected for grafting. The aorta was crossclamped, and a liter of [place] cardioplegic solution was given. The heart was still fibrillating at that point, and 300 mL of additional cardioplegia was given with topical cooling solution again. Following this, the distal circumflex was examined and was entered and opened, and the saphenous vein was anastomosed here, and this was a very poor quality vessel. The other three grafts were then completed subsequently. The crossclamp was removed. The patient was defibrillated, and partial-occluding clamp was placed, and the diagonal and the OM grafts were anastomosed to the aortic root, and to the OM graft, the distal circumflex graft was placed about 2 cm from the aortic root. Following this, a suture was required in the circumflex graft distally. The patient was then weaned from cardiopulmonary bypass. Cannula was removed, and protamine was given systemically. Mediastinal and right pleural drains were placed, and the sternum was then reapproximated with #7 interrupted wire using vancomycin paste on the sternal edges, platelet-rich blood, and platelet-poor plasma. Subcutaneous tissue and skin were closed in layers. Job ID: [id number]
[2018-09-09] MEDS ORDERED: Aspirin 325 MG TAB PO SCH (09:00)
[2018-09-09] MEDS ORDERED: Insulin Glargine 4 UNITS in Pre-Filled Syringe 1 EACH SC SCH (11:15)
--- NOTE | 2018-09-09 11:46 | PDOC.CTH ---
Cardiology Progress Note - Subjective The pt seen and examined. No overnight events. No cardiac complaints. - Objective Vital Signs Temp Pulse Ox 09/09/18 08:00 98.2 F 96 09/09/18 07:17 95 Weight 249 lb 9.012 oz 09/08/18 09/09/18 09/10/18 06:59 06:59 06:59 Intake Total 3618.3 50 Output Total 1830 360 Balance 1788.3 -310 - Physical Examination General/Neuro: alert & oriented x3 Neck: no JVD present Lungs: other: (diminished at bases) Heart: RRR Abdomen: soft Extremities: other: (dressing to MS incision; SHEFALI wrap to RLE.) - Telemetry Telemetry Rhythm: SR - Labs Result Diagrams: 09/09/18 04:27 09/09/18 04:27 - Assessment/Plan 1. S/p CABG x4 on 09/08/2018 with OLMEDO-LAD, SVG-OM, Diag, and distal Cx - stable ; On ASA 325mg qd and Statin; not on BBlocker and SHEFALI 2/2 hypotensive. 2. Hx of BMS stent x 2 on 08/08/2018 3. HTN - on Lovephed 4mg/h; 4. Hyperlipidemia - on statin 5. Insulin depended DM - on Insulin drip MAR reviewed Pt. seen and eval. by me. I agre with the A/P by the GARMENT MENDER. Doing well s/p CABG. Chest clear anteriorly. RRR. Continue present meds. Review of Systems - Review of Systems Constitutional: reports: no symptoms reported EENTM: reports: no symptoms reported Respiratory: reports: no symptoms reported Cardiac (ROS): reports: no symptoms reported ABD/GI: reports: no symptoms reported : reports: no symptoms reported
[2018-09-09 16:09] LABS: Hemoglobin 8.7 g/dL (14.0-18.0); Platelet Count 118 thou/uL (130-400)
[2018-09-09 16:28] LABS: Anion Gap 13 mmol/L (10-20); BUN (Urea Nitrogen) 20 mg/dL (8.4-25.7); Calc. Creatinine Clearance 58 mL/min (70-130); Calcium 8.2 mg/dL (7.8-10.44); Carbon Dioxide 22 mmol/L (23-31); Chloride 104 mmol/L (98-107); Estimated GFR-MDRD 43; Glucose 143 mg/dL (83-110); Potassium 4.4 mmol/L (3.5-5.1); Sodium 135 mmol/L (136-145)
[2018-09-09] MEDS: Simvastatin 40 MG TAB PO SCH (20:14)
[2018-09-09] MEDS: Insulin Regular 300 UNITS/3 ML VIAL SC PRN (21:29)
[2018-09-10 05:03] LABS: Anion Gap 9 mmol/L (10-20); BUN (Urea Nitrogen) 22 mg/dL (8.4-25.7); Calc. Creatinine Clearance 66 mL/min (70-130); Calcium 8.3 mg/dL (7.8-10.44); Carbon Dioxide 26 mmol/L (23-31); Chloride 105 mmol/L (98-107); Estimated GFR-MDRD 50; Glucose 159 mg/dL (83-110); Potassium 4.2 mmol/L (3.5-5.1); Sodium 136 mmol/L (136-145)
[2018-09-10 05:18] LABS: #Eosinphils 0.1 thou/uL (0.0-0.7); #Lymphocytes 1.8 thou/uL (1.20-3.40); #Monocytes 0.6 thou/uL (0.11-0.59); #Neutrophils 4.4 thou/uL (1.40-6.50); %Basophils 0.5 % (0.0-1.0); %Eosinophils 1.7 % (0.0-10.0); %Lymphocytes 25.7 % (21.0-51.0); %Monocytes 8.1 % (0.0-10.0); %Neutrophils 63.9 % (42.0-75.0); Hemoglobin 8.3 g/dL (14.0-18.0); Mean Corpuscular HGB CONC 33.4 g/dL (32.0-36.0); Mean Corpuscular Hemoglobin 32.6 pg (27.0-31.0); Mean Corpuscular Volume 97.6 fL (78.0-98.0); Mean Platelet Volume 8.4 fL (7.4-10.4); Platelet Count 86 thou/uL (130-400); Platelet Morphology Comment Appears Decreased; Red Blood Cell (RBC) Count 2.54 mill/uL (4.70-6.10); White Blood Cell (WBC) Count 6.9 thou/uL (4.8-10.8)
[2018-09-10] MEDS ORDERED: Acetaminophen 325 MG TAB PO PRN (07:20)
[2018-09-10] MEDS ORDERED: HYDROcodone/Acetaminophen 5/325 mg Tablet PO PRN (07:20)
[2018-09-10] MEDS ORDERED: Mag-Al 1200 mg/1200 mg/30 ML UDCUP PO PRN (07:20)
[2018-09-10] MEDS ORDERED: Nitroglycerin 0.4 MG TAB (25 Tab Bottle) SL PRN (07:20)
[2018-09-10] MEDS ORDERED: Mineral Oil ENEMA PR PRN (07:20)
[2018-09-10] MEDS ORDERED: Bisacodyl 10 MG SUPP PR PRN (07:20)
[2018-09-10] MEDS ORDERED: Furosemide 40 MG TAB PO SCH (07:30)
[2018-09-10] MEDS ORDERED: Dextrose 5% in Water 1,000 ML IV PRN (07:41)
[2018-09-10] MEDS ORDERED: Dextrose 50% Abboject 50 ML SYRINGE SLOW IVP PRN (07:41)
[2018-09-10] MEDS: Potassium Chloride 10 MEQ TAB PO SCH (08:08)
[2018-09-10] MEDS: Famotidine 20 MG TAB PO SCH ×2 (08:08→20:15)
[2018-09-10] MEDS: Aspirin 325 mg Enteric Coated Tablet PO SCH (08:08)
[2018-09-10] MEDS: Furosemide 40 MG TAB PO SCH (08:09)
[2018-09-10] MEDS: Tamsulosin HCl 0.4 MG CAP PO SCH ×2 (08:09→20:41)
[2018-09-10] MEDS: Clopidogrel Bisulfate 75 MG TAB PO SCH (08:10)
[2018-09-10] MEDS: Polyethylene Glycol 3350 17 GM Packet PO SCH (08:10)
[2018-09-10] MEDS: Insulin Regular 300 UNITS/3 ML VIAL SC PRN ×3 (08:47→17:40)
[2018-09-10] MEDS: Insulin Glargine 10 UNITS in Pre-Filled Syringe 1 EACH SC SCH ×2 (08:49→20:16)
--- NOTE | 2018-09-10 08:54 | PDOC.CTH ---
Cardiology Progress Note - Subjective The pt seen and examined. No overnight events. No cardiac complaints. CT was off this AM. - Objective Vital Signs Temp 09/10/18 08:00 98.2 F 09/10/18 04:00 98.1 F 09/10/18 00:00 98.3 F Weight 249 lb 9.012 oz 09/09/18 09/10/18 09/11/18 06:59 06:59 06:59 Intake Total 3618.3 2503 360 Output Total 1830 2111 250 Balance 1788.3 392 110 - Physical Examination General/Neuro: alert & oriented x3 Neck: no JVD present Lungs: CTA (diminished at bases) Heart: RRR Abdomen: soft Extremities: other: (no edema) - Telemetry Telemetry Rhythm: SR - Labs Result Diagrams: 09/10/18 04:35 09/10/18 04:35 - Assessment/Plan 1. S/p CABG x4 on 09/08/2018 with OLMEDO-LAD, SVG-OM, Diag, and distal Cx - stable ; On ASA 325mg qd and Statin; will start Coreg 3.125mg BID from this AM. 2. Hx of BMS stent x 2 on 08/08/2018 - On ASA and Plavix 3. HTN - stable with off Lovephed 4. Hyperlipidemia - on statin 5. Insulin depended DM MAR reviewed Pt. seen and eval. by me. i agree with the A/P by the WELD ENGINEER. He is doing well s/p CABG. Chest clear. RRR. No edema. Review of Systems - Review of Systems Constitutional: reports: no symptoms reported EENTM: reports: no symptoms reported Respiratory: reports: no symptoms reported Cardiac (ROS): reports: no symptoms reported ABD/GI: reports: no symptoms reported : reports: no symptoms reported Musculoskeletal: reports: no symptoms reported
--- NOTE | 2018-09-10 09:00 | RAD ---
CHEST ONE VIEW: HISTORY: Heart surgery. Followup. COMPARISON: 09/09/2018 FINDINGS: The cardiac silhouette is magnified by projection. The pulmonary vasculature is slightly engorged. The mediastinum is midline with postoperative changes and radiopaque drains. A right thoracostomy tu be remains in place. Parenchymal opacity at the inferior aspect of the right lung has increased slig htly. No evidence of pneumothorax. A right subclavian central venous catheter remains directed superiorly over the right internal jugula r vein, exiting the superior margin of the image. IMPRESSION: 1. Interval increased right lower lobe atelectasis. 2. Right subclavian central venous catheter remains directed over the internal jugular vein. Lines and tubes are unchanged in position. 3. Otherwise stable postoperative appearance of the chest. POS: ABRAHAM
[2018-09-10] MEDS ORDERED: Carvedilol 3.125 MG TAB PO SCH (09:15)
[2018-09-10] MEDS: Carvedilol 3.125 MG TAB PO SCH (16:36)
[2018-09-10] MEDS: Atorvastatin Calcium 20 MG TAB PO SCH (20:15)
[2018-09-11 05:00] LABS: #Eosinphils 0.1 thou/uL (0.0-0.7); #Lymphocytes 0.9 thou/uL (1.20-3.40); #Monocytes 0.8 thou/uL (0.11-0.59); %Basophils 0.3 % (0.0-1.0); %Eosinophils 1.7 % (0.0-10.0); %Lymphocytes 11.5 % (21.0-51.0); %Monocytes 10.6 % (0.0-10.0); %Neutrophils 75.8 % (42.0-75.0); Hemoglobin 9.4 g/dL (14.0-18.0); Mean Corpuscular HGB CONC 33.4 g/dL (32.0-36.0); Mean Corpuscular Hemoglobin 32.4 pg (27.0-31.0); Mean Platelet Volume 9.1 fL (7.4-10.4); Platelet Count 111 thou/uL (130-400); RBC Distribution Width 12.9 % (11.5-14.5); Red Blood Cell (RBC) Count 2.91 mill/uL (4.70-6.10); White Blood Cell (WBC) Count 7.8 thou/uL (4.8-10.8)
[2018-09-11 05:22] LABS: Anion Gap 11 mmol/L (10-20); BUN (Urea Nitrogen) 19 mg/dL (8.4-25.7); Calc. Creatinine Clearance 74 mL/min (70-130); Calcium 8.7 mg/dL (7.8-10.44); Carbon Dioxide 26 mmol/L (23-31); Chloride 101 mmol/L (98-107); Estimated GFR-MDRD 57; Glucose 219 mg/dL (83-110); Potassium 4.3 mmol/L (3.5-5.1); Sodium 134 mmol/L (136-145)
[2018-09-11] MEDS: Insulin Regular 300 UNITS/3 ML VIAL SC PRN ×3 (06:11→18:05)
[2018-09-11] MEDS: Tamsulosin HCl 0.4 MG CAP PO SCH ×2 (08:52→22:13)
[2018-09-11] MEDS: Clopidogrel Bisulfate 75 MG TAB PO SCH (08:52)
[2018-09-11] MEDS: Potassium Chloride 10 MEQ TAB PO SCH (08:52)
[2018-09-11] MEDS: Famotidine 20 MG TAB PO SCH ×2 (08:52→22:12)
[2018-09-11] MEDS: Carvedilol 3.125 MG TAB PO SCH ×2 (08:52→17:55)
[2018-09-11] MEDS: Aspirin 325 mg Enteric Coated Tablet PO SCH (08:52)
[2018-09-11] MEDS: Furosemide 40 MG TAB PO SCH (08:52)
[2018-09-11] MEDS: Polyethylene Glycol 3350 17 GM Packet PO SCH (08:59)
[2018-09-11] MEDS ORDERED: Metolazone 5 MG TAB PO SCH (10:30)
[2018-09-11] MEDS: Insulin Glargine 10 UNITS in Pre-Filled Syringe 1 EACH SC SCH ×2 (11:00→22:13)
[2018-09-11] MEDS: Amiodarone 450 MG in Dextrose 5% in Water 250 ML IVPB SCH (17:56)
[2018-09-11] MEDS: Atorvastatin Calcium 20 MG TAB PO SCH (22:12)
[2018-09-12] MEDS: Amiodarone 450 MG in Dextrose 5% in Water 250 ML IVPB SCH (01:50)
[2018-09-12] MEDS: Insulin Regular 300 UNITS/3 ML VIAL SC PRN ×4 (06:27→22:02)
[2018-09-12] MEDS ORDERED: Metolazone 5 MG TAB PO SCH (07:30)
[2018-09-12] MEDS: Tamsulosin HCl 0.4 MG CAP PO SCH ×2 (07:39→21:59)
[2018-09-12] MEDS: Aspirin 325 mg Enteric Coated Tablet PO SCH (07:39)
[2018-09-12] MEDS: Famotidine 20 MG TAB PO SCH ×2 (07:39→21:57)
[2018-09-12] MEDS: Polyethylene Glycol 3350 17 GM Packet PO SCH (07:40)
[2018-09-12] MEDS: Potassium Chloride 10 MEQ TAB PO SCH (07:40)
[2018-09-12] MEDS: Carvedilol 3.125 MG TAB PO SCH ×2 (07:40→16:35)
[2018-09-12] MEDS: Furosemide 40 MG TAB PO SCH (07:40)
[2018-09-12] MEDS: Clopidogrel Bisulfate 75 MG TAB PO SCH (07:40)
[2018-09-12] MEDS: Insulin Glargine 10 UNITS in Pre-Filled Syringe 1 EACH SC SCH ×2 (09:55→21:58)
[2018-09-12] MEDS ORDERED: Amiodarone 200 MG TAB PO SCH (13:00)
[2018-09-12] MEDS: Amiodarone 200 MG TAB PO SCH (21:56)
[2018-09-12] MEDS: Atorvastatin Calcium 20 MG TAB PO SCH (21:57)
[2018-09-13] MEDS: Insulin Regular 300 UNITS/3 ML VIAL SC PRN ×3 (06:38→17:45)
[2018-09-13] MEDS ORDERED: Insulin Glargine 25 UNITS in Pre-Filled Syringe 1 EACH SC SCH (06:58)
[2018-09-13] MEDS: Ondansetron PF 4 MG/2 ML Vial IVP PRN (07:28)
[2018-09-13] MEDS: Furosemide 40 MG TAB PO SCH (07:32)
[2018-09-13] MEDS: Famotidine 20 MG TAB PO SCH ×2 (07:32→20:27)
[2018-09-13] MEDS: Aspirin 325 mg Enteric Coated Tablet PO SCH (07:32)
[2018-09-13] MEDS: Clopidogrel Bisulfate 75 MG TAB PO SCH (07:32)
[2018-09-13] MEDS: Bisacodyl 5 MG TAB PO PRN (07:32)
[2018-09-13] MEDS: Potassium Chloride 10 MEQ TAB PO SCH (07:33)
[2018-09-13] MEDS: Carvedilol 3.125 MG TAB PO SCH ×2 (07:34→16:52)
[2018-09-13] MEDS: Polyethylene Glycol 3350 17 GM Packet PO SCH (07:38)
[2018-09-13 08:23] LABS: Puncture Site ALINE
[2018-09-13 08:24] LABS: Puncture Site ALINE
[2018-09-13] MEDS: Insulin Glargine 10 UNITS in Pre-Filled Syringe 1 EACH SC SCH (09:25)
[2018-09-13] MEDS: Insulin Glargine 25 UNITS in Pre-Filled Syringe 1 EACH SC SCH (09:25)
[2018-09-13] MEDS: Senokot S 8.6-50 MG TAB PO SCH ×2 (11:12→20:27)
[2018-09-13] MEDS: Amiodarone 200 MG TAB PO SCH ×2 (11:13→20:26)
--- NOTE | 2018-09-13 15:23 | PDOC.CTH ---
Cardiology Progress Note - Subjective The pt seen and examined. No overnight events. No cardiac complaints. - Objective Vital Signs Temp Pulse Pulse Pulse Resp BP BP 09/13/18 13:00 97.6 F 09/13/18 12:52 88 87 96/57 L 93/53 L 09/13/18 09:09 86 80 102/56 L 108/49 L 09/13/18 08:00 80 16 09/13/18 07:52 09/13/18 07:00 98 F 09/13/18 04:00 98.5 F Pulse Ox Pulse Ox Pulse Ox 09/13/18 13:00 09/13/18 12:52 100 97 09/13/18 09:09 98 97 09/13/18 08:00 09/13/18 07:52 96 09/13/18 07:00 09/13/18 04:00 Weight 235 lb 0.204 oz 09/12/18 09/13/18 09/14/18 06:59 06:59 06:59 Intake Total 1976 1536 750 Output Total 2526 2950 1250 Balance -550 -1414 -500 - Physical Examination General/Neuro: alert & oriented x3 Neck: no JVD present Lungs: CTA Heart: RRR Abdomen: soft Extremities: other: (No edema) - Telemetry Telemetry Rhythm: SR - Labs Result Diagrams: 09/11/18 04:15 09/11/18 04:15 - Assessment/Plan 1. S/p CABG x4 on 09/08/2018 with OLMEDO-LAD, SVG-OM, Diag, and distal Cx - stable ; On ASA 325mg qd and Statin; will start Coreg 3.125mg BID from this AM. 2. Hx of BMS stent x 2 on 08/08/2018 - On ASA and Plavix 3. HTN - stable with off Lovephed 4. Hyperlipidemia - on statin 5. Insulin depended DM 6. Post-op Afib for 1 hr on 09/12/2018 - remains in SR with Amiodarone 400mg BID since at 2100 on 09/12/2018; on ASA 325mg qd and Coreg 3.125mg bid. MAR reviewed Pt. seen and eval. by me. I agree with the a/P by the STROKE COORDINATOR. He has not had a BM post surgery but otherwise has been doing well. He will likely be able to be d/c 'd today or tomorrow and can f/u up with me in the office in 2-4 weeks. Review of Systems - Review of Systems Constitutional: reports: no symptoms reported EENTM: reports: no symptoms reported Respiratory: reports: no symptoms reported Cardiac (ROS): reports: no symptoms reported ABD/GI: reports: no symptoms reported : reports: no symptoms reported Musculoskeletal: reports: no symptoms reported
[2018-09-13] MEDS: Tamsulosin HCl 0.4 MG CAP PO SCH (20:27)
[2018-09-13] MEDS: Atorvastatin Calcium 20 MG TAB PO SCH (20:27)
[2018-09-14] MEDS: Guaifenesin DM 100-10/5 ML UDCUP PO PRN ×2 (01:53→23:03)
[2018-09-14] MEDS: Carvedilol 3.125 MG TAB PO SCH ×2 (09:12→17:48)
[2018-09-14] MEDS: Furosemide 40 MG TAB PO SCH (09:12)
[2018-09-14] MEDS: Senokot S 8.6-50 MG TAB PO SCH ×2 (09:12→20:48)
[2018-09-14] MEDS: Clopidogrel Bisulfate 75 MG TAB PO SCH (09:12)
[2018-09-14] MEDS: Potassium Chloride 10 MEQ TAB PO SCH (09:12)
[2018-09-14] MEDS: Famotidine 20 MG TAB PO SCH ×2 (09:12→20:47)
[2018-09-14] MEDS: Amiodarone 200 MG TAB PO SCH ×2 (09:12→20:47)
[2018-09-14] MEDS: Aspirin 325 mg Enteric Coated Tablet PO SCH (09:12)
[2018-09-14] MEDS: Polyethylene Glycol 3350 17 GM Packet PO SCH (09:14)
[2018-09-14] MEDS: Insulin Glargine 25 UNITS in Pre-Filled Syringe 1 EACH SC SCH (09:15)
--- NOTE | 2018-09-14 10:42 | PDOC.CTH ---
Cardiology Progress Note - Subjective The pt seen and examined. No overnight events. No cardiac complaints. He stated he had BM today. - Objective Vital Signs Temp Pulse Resp BP BP Pulse Ox 09/14/18 07:46 97.6 F 83 18 119/54 L 93 L 09/14/18 04:23 98.2 F 79 16 125/58 L 91 L 09/14/18 00:36 79 16 92 L 09/13/18 23:42 82 16 119/58 L 93 L Weight 220 lb 3.2 oz 09/13/18 09/14/18 09/15/18 06:59 06:59 06:59 Intake Total 1536 930 Output Total 2950 1775 Balance -6038 -905 - Physical Examination General/Neuro: alert & oriented x3 Neck: no JVD present Lungs: CTA Heart: RRR Abdomen: soft Extremities: other: (No edema) - Telemetry Telemetry Rhythm: SR - Labs Result Diagrams: 09/14/18 12:27 09/14/18 12:27 - Assessment/Plan 1. S/p CABG x4 on 09/08/2018 with OLMEDO-LAD, SVG-OM, Diag, and distal Cx - stable ; On ASA 325mg qd, Statin, and Coreg 3.125mg BID. 2. Hx of BMS stent x 2 on 08/08/2018 - On ASA and Plavix 3. HTN - stable 4. Hyperlipidemia - on statin 5. Insulin depended DM 6. Post-op Afib for 1 hr on 09/12/2018 - remains in SR with Amiodarone 400mg BID since at 2100 on 09/12/2018; on ASA 325mg qd and Coreg 3.125mg bid. MAR reviewed * From Cardiac standpoint, the pt is stable to d/c home once CT surgeon clears for the pt. The pt will f/u with Dr Flannery' office within the office in 2 weeks. Pt. seen and eval. by me. I agree with the A/P by the BOTTLED BEVERAGE INSPECTOR. Chest clear. RRR. He did have some drainage from the sternal incision last night but the wound looks clean and the sternum is stable. Review of Systems - Review of Systems Constitutional: reports: no symptoms reported EENTM: reports: no symptoms reported Respiratory: reports: no symptoms reported Cardiac (ROS): reports: no symptoms reported ABD/GI: reports: no symptoms reported : reports: no symptoms reported Musculoskeletal: reports: no symptoms reported Skin: reports: no symptoms reported
[2018-09-14] MEDS: Insulin Regular 300 UNITS/3 ML VIAL SC PRN ×3 (11:26→22:57)
[2018-09-14 12:35] LABS: #Eosinphils 0.3 thou/uL (0.0-0.7); #Lymphocytes 1.1 thou/uL (1.20-3.40); #Monocytes 0.8 thou/uL (0.11-0.59); #Neutrophils 5.2 thou/uL (1.40-6.50); %Basophils 0.5 % (0.0-1.0); %Eosinophils 4.5 % (0.0-10.0); %Monocytes 10.4 % (0.0-10.0); %Neutrophils 69.5 % (42.0-75.0); Hemoglobin 10.2 g/dL (14.0-18.0); Mean Corpuscular Hemoglobin 31.7 pg (27.0-31.0); Mean Corpuscular Volume 96.1 fL (78.0-98.0); Mean Platelet Volume 7.7 fL (7.4-10.4); Platelet Count 165 thou/uL (130-400); RBC Distribution Width 12.5 % (11.5-14.5); Red Blood Cell (RBC) Count 3.22 mill/uL (4.70-6.10); White Blood Cell (WBC) Count 7.5 thou/uL (4.8-10.8)
[2018-09-14 12:47] LABS: Anion Gap 15 mmol/L (10-20); BUN (Urea Nitrogen) 28 mg/dL (8.4-25.7); Calc. Creatinine Clearance 43 mL/min (70-130); Calcium 9.4 mg/dL (7.8-10.44); Carbon Dioxide 34 mmol/L (23-31); Chloride 85 mmol/L (98-107); Estimated GFR-MDRD 36; Glucose 239 mg/dL (83-110); Potassium 3.5 mmol/L (3.5-5.1); Sodium 130 mmol/L (136-145)
[2018-09-14] MEDS: Atorvastatin Calcium 20 MG TAB PO SCH (20:47)
[2018-09-14] MEDS: Tamsulosin HCl 0.4 MG CAP PO SCH (20:47)
[2018-09-14] MEDS: Benzonatate 100 MG CAP PO SCH (20:47)
[2018-09-14] MEDS: Cefprozil 250 MG TAB PO SCH (20:48)
[2018-09-14] MEDS: Insulin Glargine 30 UNITS in Pre-Filled Syringe 1 EACH SC SCH (22:56)
[2018-09-15 06:31] LABS: Anion Gap 13 mmol/L (10-20); BUN (Urea Nitrogen) 29 mg/dL (8.4-25.7); Calc. Creatinine Clearance 47 mL/min (70-130); Carbon Dioxide 37 mmol/L (23-31); Chloride 82 mmol/L (98-107); Estimated GFR-MDRD 40; Glucose 135 mg/dL (83-110); Sodium 129 mmol/L (136-145)
[2018-09-15 06:36] LABS: Potassium 2.7 mmol/L (3.5-5.1)
[2018-09-15] MEDS: Ondansetron PF 4 MG/2 ML Vial IVP PRN (06:42)
[2018-09-15] MEDS ORDERED: Potassium Chloride 20 MEQ TAB PO SCH (07:00)
--- NOTE | 2018-09-15 08:42 | RAD ---
CHEST 1 VIEW: Date: 09/15/18 HISTORY: Post coronary artery bypass graft. COMPARISON: 09/10/18. FINDINGS: Right subclavian catheter tip again extends up into the right jugular vein. Postop midline sternotomy . Monitor leads overlie the chest. Minimal increased markings are noted in the right infrahilar regio n with probable small pleural effusions. No pneumothorax. Improvement in the appearance of the chest from prior 09/10/18 study. IMPRESSION: Minimal increased markings in the right infrahilar region, possibly mild subsegmental atelectasis, wi th small bilateral pleural effusions. No evidence for other significant new process. No confluent pne umonia. POS: TPC
[2018-09-15] MEDS ORDERED: Insulin Glargine 30 UNITS in Pre-Filled Syringe 1 EACH SC SCH (09:00)
[2018-09-15] MEDS: Cefprozil 250 MG TAB PO SCH (09:08)
[2018-09-15] MEDS: Benzonatate 100 MG CAP PO SCH ×3 (09:08→20:50)
[2018-09-15] MEDS: Potassium Chloride 10 MEQ TAB PO SCH (09:09)
[2018-09-15] MEDS: Famotidine 20 MG TAB PO SCH ×2 (09:09→20:50)
[2018-09-15] MEDS: Aspirin 325 mg Enteric Coated Tablet PO SCH (09:09)
[2018-09-15] MEDS: Senokot S 8.6-50 MG TAB PO SCH ×2 (09:09→20:50)
[2018-09-15] MEDS: Amiodarone 200 MG TAB PO SCH ×3 (09:10→20:50)
[2018-09-15] MEDS: Polyethylene Glycol 3350 17 GM Packet PO SCH (09:11)
[2018-09-15] MEDS: Guaifenesin DM 100-10/5 ML UDCUP PO PRN ×3 (09:24→20:53)
--- NOTE | 2018-09-15 09:51 | PDOC.CTH ---
Cardiology Progress Note - Subjective The pt seen and examined. No overnight events. No cardiac complaints. Near syncope. Syncope. - Objective Vital Signs Temp Pulse Resp BP BP Pulse Ox 09/15/18 06:42 79 20 126/58 L 09/15/18 04:00 97.8 F 83 20 114/57 L 92 L 09/14/18 23:00 88 20 117/57 L 90 L Weight 215 lb 11.2 oz 09/14/18 09/15/18 09/16/18 06:59 06:59 06:59 Intake Total 930 1230 Output Total 1775 1475 Balance -845 -245 - Physical Examination General/Neuro: alert & oriented x3 Neck: no JVD present Lungs: CTA Heart: RRR Abdomen: soft Extremities: other: (No edema) - Telemetry Telemetry Rhythm: SR - Labs Result Diagrams: 09/14/18 12:27 09/15/18 05:52 - Assessment/Plan 1. S/p CABG x4 on 09/08/2018 with OLMEDO-LAD, SVG-OM, Diag, and distal Cx - stable ; On ASA 325mg qd, Statin, Coreg 3.125mg BID is on hold due to complains of dizziness. Some drainage @ MSI site. 2. Hx of BMS stent x 2 on 08/08/2018 - On ASA and Plavix 3. HTN - stable with holding Coreg 4. Hyperlipidemia - on statin 5. Insulin depended DM 6. Post-op Afib for 1 hr on 09/12/2018 - remains in SR with Amiodarone 200mg BID since this AM; On ASA 325mg qd. No HR changed during the dizziness episodes yesterday. 7. Dizziness - Creg and Lasix are on hold for now. SOUTH reviewed Pt. seen and eval. by me. I agree with the A/P by the ROLL PLUGGER. He has had syncope or near syncope several times today . Each time while coughing or trying not to cough. This is not the typical cough induced syncope but could be the same effect as he is trying not to cough in order to not disrupt the sternal wound. During each episode the HR does not decrease. The BP appears stable. He may be producing decreased venous return and decreased C.O while straining. The best option is to control the coughing. Per the family he has not had this before but does cough each AM. Exam: diffuse expiratory wheeze. RRR. Mild edema. Sternal drainage, Serosanguinous. Review of Systems - Review of Systems Constitutional: reports: no symptoms reported EENTM: reports: no symptoms reported Respiratory: reports: no symptoms reported Cardiac (ROS): reports: no symptoms reported ABD/GI: reports: no symptoms reported : reports: no symptoms reported Musculoskeletal: reports: no symptoms reported
[2018-09-15] MEDS: HumaLOG 300 UNITS/3 ML VIAL SC PRN ×2 (12:02→17:28)
[2018-09-15] MEDS ORDERED: Sodium Chloride 0.9% 500 ML IV SCH (14:45)
[2018-09-15] MEDS ORDERED: Activase 2 MG VIAL CATH SCH (15:00)
[2018-09-15] MEDS ORDERED: Sterile Water 10 ML VIAL IVP SCH (15:00)
[2018-09-15] MEDS: HYDROcodone/Chlorphen Polis 5 ML UDCUP PO SCH (16:13)
[2018-09-15] MEDS: Ipratropium Bromide 0.06% Nasal Inhaler 15ml NASAL SCH ×2 (16:25→20:52)
[2018-09-15] MEDS: Azithromycin 250 MG TAB PO SCH (16:34)
--- NOTE | 2018-09-15 17:39 | CON ---
DATE OF CONSULTATION: 09/15/2018 TIME SPENT: A 70 minutes of time, of that time, greater than 50% was spent with the patient and/or the patient's unit in the hospital. REASON FOR CONSULTATION: Cough. HISTORY OF PRESENT ILLNESS: The patient is an 82-year-old male, who underwent coronary artery bypass grafting surgery recently. He has developed a cough afterwards. He has had a couple of instances of cough-induced syncope. He now has some drainage coming from his sternal incision and the concern is it could become infected, if he continues to cough. The patient says he has a chronic cough at home. His current cough is productive of yellow sputum. He is a former smoker. PAST MEDICAL HISTORY: 1. Coronary artery disease. 2. Hypertension. 3. Hyperlipidemia. 4. Diabetes mellitus. PAST SURGICAL HISTORY: 1. Back surgery. 2. Recent CABG. 3. Achilles tendon rupture. 4. Eyelid surgery. ALLERGIES: PENICILLIN AND ITRACONAZOLE. MEDICATIONS: Medications prior to admission reviewed, see chart. Current medications, reviewed, see chart. Of note, the patient is not currently taking any type of SHEFALI inhibitor. SOCIAL HISTORY: Former smoker. Does not consume alcohol. Does not use illicit drugs. REVIEW OF SYSTEMS: A 12-point review of systems is otherwise negative. PHYSICAL EXAMINATION: VITAL SIGNS: Temperature 97.9, pulse 88, blood pressure 115/54, O2 saturation 93%, and respiratory rate 18. GENERAL: He is awake, alert, in no distress. HEENT: Unremarkable. NECK: No adenopathy, JVD, or bruits. LUNGS: He has expiratory wheezes bilaterally best heard anteriorly. He has a midline sternal dressing in place with some drainage. Posteriorly, he has some crackles in the bases. CARDIAC: S1 and S2. Regular. ABDOMEN: Soft and nontender. EXTREMITIES: No clubbing, cyanosis, or edema. IMAGING DATA: Chest x-ray showed no mass, effusion, or infiltrate. LABORATORY DATA: White blood cell count 7.5, hematocrit 31, and platelet count 165. Sodium 129, potassium 2.7, chloride 82, CO2 of 37, BUN 29, creatinine 1.6, glucose 135. ASSESSMENT: 1. Status post coronary artery bypass grafting surgery. 2. Cough-induced syncope. 3. Diabetes mellitus. 4. Chronic bronchitis. 5. Previous tobacco abuse. PLAN: 1. We need to try to suppress his cough as much as possible. I would like to avoid IV steroids given his diabetes mellitus and huge risk for infection. I have put him on inhaled steroids. Additionally, I will schedule his ipratropium/albuterol every 4 hours. 2. Add Zithromax 250 mg daily to see if that will help with the bronchitis symptoms probably need to treat him for 3 weeks with that. 3. Add schedule Tussionex every 12 hours. I will follow with you. Job ID: [id number]
[2018-09-15] MEDS: Budesonide 0.5 MG/2 ML NEB INH SCH (19:45)
[2018-09-15] MEDS: Tamsulosin HCl 0.4 MG CAP PO SCH (20:50)
[2018-09-15] MEDS: Atorvastatin Calcium 20 MG TAB PO SCH (20:50)
[2018-09-15] MEDS: Insulin Glargine 30 UNITS in Pre-Filled Syringe 1 EACH SC SCH (20:51)
[2018-09-16] MEDS: HYDROcodone/Chlorphen Polis 5 ML UDCUP PO SCH ×2 (05:31→16:14)
[2018-09-16 06:34] LABS: #Eosinphils 0.5 thou/uL (0.0-0.7); #Lymphocytes 1.8 thou/uL (1.20-3.40); #Neutrophils 5.9 thou/uL (1.40-6.50); %Basophils 0.5 % (0.0-1.0); %Eosinophils 5.3 % (0.0-10.0); %Lymphocytes 19.3 % (21.0-51.0); %Monocytes 11.2 % (0.0-10.0); %Neutrophils 63.6 % (42.0-75.0); Hemoglobin 9.6 g/dL (14.0-18.0); Mean Corpuscular HGB CONC 33.5 g/dL (32.0-36.0); Mean Corpuscular Hemoglobin 32.3 pg (27.0-31.0); Mean Corpuscular Volume 96.5 fL (78.0-98.0); Mean Platelet Volume 8.3 fL (7.4-10.4); Platelet Count 193 thou/uL (130-400); RBC Distribution Width 12.6 % (11.5-14.5); Red Blood Cell (RBC) Count 2.98 mill/uL (4.70-6.10); White Blood Cell (WBC) Count 9.2 thou/uL (4.8-10.8)
[2018-09-16] MEDS ORDERED: Insulin Glargine 35 UNITS in Pre-Filled Syringe 1 EACH SC SCH (06:38)
[2018-09-16] MEDS: Budesonide 0.5 MG/2 ML NEB INH SCH ×2 (06:53→18:52)
[2018-09-16 06:56] LABS: Anion Gap 15 mmol/L (10-20); BUN (Urea Nitrogen) 27 mg/dL (8.4-25.7); Calc. Creatinine Clearance 46 mL/min (70-130); Calcium 8.9 mg/dL (7.8-10.44); Carbon Dioxide 34 mmol/L (23-31); Chloride 83 mmol/L (98-107); Estimated GFR-MDRD 38; Glucose 165 mg/dL (83-110); Sodium 129 mmol/L (136-145)
[2018-09-16 07:01] LABS: ALT (SGPT) 18 U/L (8-55); AST (SGOT) 20 U/L (5-34); Albumin 3.4 g/dL (3.4-4.8); Alkaline Phosphatase 82 U/L (40-150); Bilirubin, Direct 0.3 mg/dL (0.1-0.3); Bilirubin, Total 0.6 mg/dL (0.2-1.2); Protein, Total 5.9 g/dL (5.8-8.1)
[2018-09-16 07:08] LABS: Potassium 2.6 mmol/L (3.5-5.1)
[2018-09-16] MEDS ORDERED: Potassium Chloride 20 MEQ TAB PO SCH (07:30)
[2018-09-16] MEDS: Insulin Glargine 35 UNITS in Pre-Filled Syringe 1 EACH SC SCH ×2 (08:29→21:04)
[2018-09-16] MEDS: Ipratropium Bromide 0.06% Nasal Inhaler 15ml NASAL SCH ×4 (08:30→21:01)
[2018-09-16] MEDS: Senokot S 8.6-50 MG TAB PO SCH ×2 (08:30→21:00)
[2018-09-16] MEDS: Cefprozil 250 MG TAB PO SCH ×2 (08:30→21:00)
[2018-09-16] MEDS: Polyethylene Glycol 3350 17 GM Packet PO SCH (08:30)
[2018-09-16] MEDS: Benzonatate 100 MG CAP PO SCH ×3 (08:31→21:00)
[2018-09-16] MEDS: Famotidine 20 MG TAB PO SCH ×2 (08:31→21:00)
[2018-09-16] MEDS: Amiodarone 200 MG TAB PO SCH ×2 (08:31→21:00)
[2018-09-16] MEDS: Aspirin 325 mg Enteric Coated Tablet PO SCH (08:31)
--- NOTE | 2018-09-16 09:32 | PRG ---
DATE OF SERVICE: 09/16/2018 SUBJECTIVE: The patient's cough is much better. His cough induced syncope symptoms when using incentive spirometer. OBJECTIVE: VITAL SIGNS: Temperature 97.5, pulse 89, respirations 16, O2 saturation 93% on room air, and blood pressure 117/56. HEENT: Unremarkable. NECK: No JVD. LUNGS: Clear without wheezing today. CARDIAC: S1 and S2, regular. Midline sternal wound has a dressing in place. ABDOMEN: Soft and obese. EXTREMITIES: No edema. LABORATORY DATA: White blood cell count 9.2, hematocrit 28.8, and platelet count 193. Sodium 129, potassium 2.6, chloride 83, CO2 of 34, BUN 27, creatinine 1.7, and glucose 165. ASSESSMENT: 1. Cough induced syncope. 2. Likely underlying chronic obstructive pulmonary disease. RECOMMENDATIONS: Continue nebulization treatment, Tussionex, azithromycin. I would avoid incentive spirometry for the time being. I just encourage ambulation with assistance. Job ID: [id number]
--- NOTE | 2018-09-16 09:57 | PDOC.CTH ---
Cardiology Progress Note - Subjective The pt seen and examined. No overnight events. No cardiac complaints. - Objective Vital Signs Temp Pulse Resp BP Pulse Ox 09/16/18 06:53 89 16 93 L 09/16/18 04:00 97.5 F L 86 20 117/56 L 92 L 09/16/18 01:42 89 18 91 L 09/15/18 23:59 98.0 F 89 20 108/52 L 100 09/15/18 23:04 87 18 92 L Weight 221 lb 6.4 oz 09/15/18 09/16/18 09/17/18 06:59 06:59 06:59 Intake Total 1230 1400 Output Total 1475 1050 Balance -245 350 - Physical Examination General/Neuro: alert & oriented x3 Neck: no JVD present Lungs: other: Heart: RRR Abdomen: soft Extremities: other: (1+ pitting BLE edema) - Telemetry Telemetry Rhythm: SR - Labs Result Diagrams: 09/16/18 05:01 09/16/18 05:01 - Assessment/Plan 1. S/p CABG x4 on 09/08/2018 with OLMEDO-LAD, SVG-OM, Diag, and distal Cx - stable ; On ASA 325mg qd, Statin; Coreg 3.125mg BID is on hold due to dizziness. Some drainage @ MSI site. 2. Hx of BMS stent x 2 on 08/08/2018 - On ASA and Plavix 3. HTN - stable with holding Coreg 4. Hyperlipidemia - on statin 5. Insulin depended DM 6. Post-op Afib for 1 hr on 09/12/2018 - remains in SR with Amiodarone 200mg BID since on 08/18/2018; On ASA 325mg qd. No HR changed during synocpal episodes with severe cough yesterday and this AM; 7. Syncopal episodes with Severe Cough - During each episode, the HR does not decrease. Coreg and Lasix are on hold for now. SOUTH reviewed Pt. seen and eval. by me. I agree with the A/P by the PHYSICIAN PRACTICE MANAGER. He had another syncopal episode today while trying to use incentive spirometry. This is now being held. I reviewed his medications and will hold Flomax for now. He appears orthostatic and may be intravascularly vol. depleted, The diuretics are also being held. The potassium is low and was being replaced. Exam : expiratory wheeze, RRR. mild edema. Apply MEHRAN hose. The sternal incision looks better today with decreased drainage. Review of Systems - Review of Systems Constitutional: reports: no symptoms reported EENTM: reports: no symptoms reported Respiratory: reports: no symptoms reported Cardiac (ROS): reports: no symptoms reported ABD/GI: reports: no symptoms reported : reports: no symptoms reported Musculoskeletal: reports: no symptoms reported
[2018-09-16] MEDS: Guaifenesin DM 100-10/5 ML UDCUP PO PRN ×2 (11:37→20:59)
[2018-09-16] MEDS: HumaLOG 300 UNITS/3 ML VIAL SC PRN ×2 (11:37→17:44)
[2018-09-16 14:37] VITALS: BMI 34.7
[2018-09-16] MEDS: Azithromycin 250 MG TAB PO SCH (17:40)
[2018-09-16] MEDS: Atorvastatin Calcium 20 MG TAB PO SCH (21:00)
[2018-09-17] MEDS: HYDROcodone/Chlorphen Polis 5 ML UDCUP PO SCH ×2 (04:19→17:06)
[2018-09-17 05:48] LABS: #Eosinphils 0.5 thou/uL (0.0-0.7); #Lymphocytes 1.1 thou/uL (1.20-3.40); #Monocytes 0.8 thou/uL (0.11-0.59); #Neutrophils 5.7 thou/uL (1.40-6.50); %Basophils 0.6 % (0.0-1.0); %Eosinophils 6.4 % (0.0-10.0); %Lymphocytes 13.9 % (21.0-51.0); %Monocytes 10.2 % (0.0-10.0); Hemoglobin 9.4 g/dL (14.0-18.0); Mean Corpuscular HGB CONC 32.3 g/dL (32.0-36.0); Mean Corpuscular Hemoglobin 31.1 pg (27.0-31.0); Mean Corpuscular Volume 96.4 fL (78.0-98.0); Mean Platelet Volume 8.1 fL (7.4-10.4); Platelet Count 200 thou/uL (130-400); RBC Distribution Width 12.7 % (11.5-14.5); Red Blood Cell (RBC) Count 3.02 mill/uL (4.70-6.10); White Blood Cell (WBC) Count 8.3 thou/uL (4.8-10.8)
[2018-09-17 05:57] LABS: Anion Gap 12 mmol/L (10-20); BUN (Urea Nitrogen) 23 mg/dL (8.4-25.7); Calc. Creatinine Clearance 52 mL/min (70-130); Calcium 8.7 mg/dL (7.8-10.44); Carbon Dioxide 33 mmol/L (23-31); Chloride 84 mmol/L (98-107); Estimated GFR-MDRD 43; Glucose 244 mg/dL (83-110); Potassium 3.3 mmol/L (3.5-5.1); Sodium 126 mmol/L (136-145)
[2018-09-17 06:06] LABS: Hemoglobin A1c 6.7 % (4.0-6.0)
[2018-09-17] MEDS: Budesonide 0.5 MG/2 ML NEB INH SCH ×2 (06:42→18:35)
[2018-09-17] MEDS: Amiodarone 200 MG TAB PO SCH ×2 (08:30→20:02)
[2018-09-17] MEDS: Famotidine 20 MG TAB PO SCH ×2 (08:30→20:02)
[2018-09-17] MEDS: Cefprozil 250 MG TAB PO SCH ×2 (08:30→20:02)
[2018-09-17] MEDS: Insulin Glargine 35 UNITS in Pre-Filled Syringe 1 EACH SC SCH ×2 (08:30→20:06)
[2018-09-17] MEDS: Ipratropium Bromide 0.06% Nasal Inhaler 15ml NASAL SCH ×4 (08:30→20:01)
[2018-09-17] MEDS: Senokot S 8.6-50 MG TAB PO SCH ×2 (08:30→20:02)
[2018-09-17] MEDS: Benzonatate 100 MG CAP PO SCH ×3 (08:31→20:02)
[2018-09-17] MEDS: Polyethylene Glycol 3350 17 GM Packet PO SCH (08:31)
[2018-09-17] MEDS: Aspirin 325 mg Enteric Coated Tablet PO SCH (08:31)
[2018-09-17] MEDS: HumaLOG 300 UNITS/3 ML VIAL SC PRN ×2 (08:32→11:01)
--- NOTE | 2018-09-17 08:46 | PRG ---
DATE OF SERVICE: 09/17/2018 SUBJECTIVE: His cough is far better than what it was. OBJECTIVE: VITAL SIGNS: Temperature is 98.1, pulse 96, respirations 20, O2 saturation 100%, and blood pressure 120/57. HEENT: Unremarkable. NECK: No JVD. LUNGS: Clear anteriorly. CARDIAC: S1 and S2, regular. ABDOMEN: Soft. EXTREMITIES: No edema. LABORATORY DATA: White blood cell count 8.3, hematocrit 29.2, platelet count 200. Sodium 126, potassium 3.3, chloride 84, CO2 of 33, BUN 23, creatinine 1.5, and glucose 244. ASSESSMENT: 1. Cough induced syncope. 2. Sternal wound drainage. 3. Labs look consistent with prerenal azotemia. RECOMMENDATIONS: 1. I would withhold any diuretics at this time. 2. Continue inhaled steroids, antitussive medication, and nasal ipratropium. 3. Continue Zithromax. Job ID: [id number]
[2018-09-17] MEDS: Guaifenesin DM 100-10/5 ML UDCUP PO PRN (11:00)
--- NOTE | 2018-09-17 13:32 | PDOC.CTH ---
Cardiology Progress Note - Subjective The pt seen and examined. No overnight events. No cardiac complaints. 2 spots on MSI dressing today. - Objective Vital Signs Temp Pulse Pulse Pulse Pulse Resp BP 09/17/18 12:22 97 94 118/55 L 09/17/18 11:51 93 16 09/17/18 10:39 90 20 09/17/18 09:00 102 H 92 09/17/18 08:30 09/17/18 07:16 98.1 F 96 20 09/17/18 06:39 89 20 09/17/18 04:00 97.9 F 90 16 09/17/18 02:47 BP BP BP BP BP Pulse Ox Pulse Ox 09/17/18 12:22 99/51 L 91/52 L 87/50 L 107/52 L 100 09/17/18 11:51 136/62 100 09/17/18 10:39 94 L 09/17/18 09:00 94/53 L 104/53 L 85/38 L 109/53 L 09/17/18 08:30 100 09/17/18 07:16 120/57 L 100 09/17/18 06:39 90 L 09/17/18 04:00 106/55 L 99 09/17/18 02:47 92 L Pulse Ox Pulse Ox 09/17/18 12:22 100 09/17/18 11:51 09/17/18 10:39 09/17/18 09:00 100 100 09/17/18 08:30 09/17/18 07:16 09/17/18 06:39 09/17/18 04:00 09/17/18 02:47 Admit Weight 225 lb Weight 221 lb 14.4 oz 09/16/18 09/17/18 09/18/18 06:59 06:59 06:59 Intake Total 1400 1120 Output Total 1050 1150 Balance 350 -30 - Physical Examination General/Neuro: alert & oriented x3 Neck: no JVD present Lungs: other: (diminished at bases) Heart: RRR Abdomen: soft Extremities: other: (No edema; on TEDs) - Telemetry Telemetry Rhythm: SR - Labs Result Diagrams: 09/17/18 05:13 09/17/18 05:13 - Assessment/Plan 1. S/p CABG x4 on 09/08/2018 with OLMEDO-LAD, SVG-OM, Diag, and distal Cx - stable ; On ASA 325mg qd and Statin; Coreg 3.125mg BID is on hold due to dizziness. Some drainage @ MSI site. 2. Hx of BMS stent x 2 on 08/08/2018 - On ASA and Plavix 3. HTN - stable with holding Coreg 4. Hyperlipidemia - on statin 5. Insulin depended DM 6. Post-op Afib for 1 hr on 09/12/2018 - remains in SR with Amiodarone 200mg BID since on 08/18/2018; On ASA 325mg qd. No HR changed during synocpal episodes with severe cough. 7. Syncopal episodes with Severe Cough - During each episode, the HR does not decrease. Coreg and Lasix are on hold for now. 8. Hypokalemia 0 covered. 9. hyponatremia MAR reviewed Pt. seen and eval. by me. i agree with the A/P by the COTTON BAG SEWER. No syncopal episode today yet. Chest clear. RRR. The Na and K are still low. Will coleen replacement. the sternal wound has minimal drainage. The BP is better but still some orthostasis. I stopped the proscar yesterday in hopes the BP would be more stable. he is ready for transfer to a rehab facility. i will sign off for the weekend . If he remains in the hospital and has any cardiac problems then please page cardiology again. gene Review of Systems - Review of Systems Constitutional: reports: no symptoms reported EENTM: reports: no symptoms reported Respiratory: reports: no symptoms reported Cardiac (ROS): reports: no symptoms reported ABD/GI: reports: no symptoms reported : reports: no symptoms reported Musculoskeletal: reports: no symptoms reported
[2018-09-17] MEDS: Azithromycin 250 MG TAB PO SCH (17:51)
[2018-09-17] MEDS: Atorvastatin Calcium 20 MG TAB PO SCH (20:02)
[2018-09-18] MEDS: HYDROcodone/Chlorphen Polis 5 ML UDCUP PO SCH ×2 (04:13→16:12)
[2018-09-18] MEDS: Budesonide 0.5 MG/2 ML NEB INH SCH ×2 (06:53→18:34)
[2018-09-18] MEDS: Guaifenesin DM 100-10/5 ML UDCUP PO PRN ×2 (08:41→20:31)
[2018-09-18] MEDS: Famotidine 20 MG TAB PO SCH ×2 (08:41→20:29)
[2018-09-18] MEDS: Bisacodyl 5 MG TAB PO PRN (08:42)
[2018-09-18] MEDS: Senokot S 8.6-50 MG TAB PO SCH ×2 (08:42→20:29)
[2018-09-18] MEDS: Amiodarone 200 MG TAB PO SCH ×2 (08:42→20:28)
[2018-09-18] MEDS: Aspirin 325 mg Enteric Coated Tablet PO SCH (08:42)
[2018-09-18] MEDS: Ipratropium Bromide 0.06% Nasal Inhaler 15ml NASAL SCH ×4 (08:43→20:30)
[2018-09-18] MEDS: Polyethylene Glycol 3350 17 GM Packet PO SCH (08:43)
[2018-09-18] MEDS: Insulin Glargine 35 UNITS in Pre-Filled Syringe 1 EACH SC SCH ×2 (08:43→20:30)
[2018-09-18] MEDS: Benzonatate 100 MG CAP PO SCH ×3 (08:43→20:28)
[2018-09-18] MEDS: Cefprozil 250 MG TAB PO SCH ×2 (08:44→20:28)
[2018-09-18 11:30] LABS: Anion Gap 12 mmol/L (10-20); BUN (Urea Nitrogen) 21 mg/dL (8.4-25.7); Calc. Creatinine Clearance 56 mL/min (70-130); Calcium 8.8 mg/dL (7.8-10.44); Carbon Dioxide 32 mmol/L (23-31); Chloride 84 mmol/L (98-107); Estimated GFR-MDRD 47; Glucose 132 mg/dL (83-110); Potassium 3.8 mmol/L (3.5-5.1); Sodium 124 mmol/L (136-145)
--- NOTE | 2018-09-18 12:10 | PRG ---
DATE OF SERVICE: 09/18/2018 SUBJECTIVE: This morning, he is doing well. Denies any pain or discomfort. Denies any shortness of breath. His coughing is improved. OBJECTIVE: VITAL SIGNS: His sats are 98% room air, respirations 16, temperature 97, blood pressure 120/59. He is afebrile. CHEST: Decreased breath sounds. No wheezing. HEART: Normal S1, S2. No gallop. ABDOMEN: No masses. LABORATORY DATA: Sodium is 124, creatinine 1.4. IMPRESSION: Status post coronary artery bypass graft, sternal wound dehiscence, cough, azotemia, hyponatremia. PLAN: Continue Pulmicort, neb treatments, supportive care. We will follow. Job ID: [id number]
[2018-09-18] MEDS: Azithromycin 250 MG TAB PO SCH (17:37)
[2018-09-18] MEDS: Atorvastatin Calcium 20 MG TAB PO SCH (20:28)
[2018-09-19] MEDS: HYDROcodone/Chlorphen Polis 5 ML UDCUP PO SCH ×2 (04:27→16:05)
[2018-09-19] MEDS: Budesonide 0.5 MG/2 ML NEB INH SCH ×2 (06:44→18:53)
[2018-09-19] MEDS: Ipratropium Bromide 0.06% Nasal Inhaler 15ml NASAL SCH ×3 (09:01→18:02)
[2018-09-19] MEDS: Aspirin 325 mg Enteric Coated Tablet PO SCH (09:59)
[2018-09-19] MEDS: Famotidine 20 MG TAB PO SCH ×2 (09:59→22:01)
[2018-09-19] MEDS: Senokot S 8.6-50 MG TAB PO SCH ×2 (09:59→22:01)
[2018-09-19] MEDS: Benzonatate 100 MG CAP PO SCH ×3 (09:59→22:01)
[2018-09-19] MEDS: Amiodarone 200 MG TAB PO SCH ×2 (09:59→22:02)
[2018-09-19] MEDS: Cefprozil 250 MG TAB PO SCH ×2 (09:59→22:16)
[2018-09-19] MEDS: Insulin Glargine 35 UNITS in Pre-Filled Syringe 1 EACH SC SCH ×2 (10:00→22:17)
[2018-09-19] MEDS: Polyethylene Glycol 3350 17 GM Packet PO SCH (10:01)
--- NOTE | 2018-09-19 13:15 | PRG ---
DATE OF SERVICE: 09/19/2018 SUBJECTIVE: This morning, he is doing well. Less cough. Less shortness of breath. OBJECTIVE: VITAL SIGNS: Sats are 95% on room air, respiratory rate 18, temperature 97, pulse 85, and blood pressure 110/54. CHEST: Decreased breath sounds without any wheezing. CARDIAC: Normal S1 and S2. No gallops. ABDOMEN: No masses. IMPRESSION: Status post coronary artery bypass graft, status post cough, with sternal wound dehiscence. No evidence of any sepsis at this stage. Continue supportive care, neb treatments, empiric antibiotics. Job ID: [id number]
[2018-09-19 13:56] LABS: Anion Gap 11 mmol/L (10-20); BUN (Urea Nitrogen) 23 mg/dL (8.4-25.7); Calc. Creatinine Clearance 56 mL/min (70-130); Calcium 9.2 mg/dL (7.8-10.44); Carbon Dioxide 31 mmol/L (23-31); Chloride 87 mmol/L (98-107); Estimated GFR-MDRD 47; Glucose 77 mg/dL (83-110); Sodium 125 mmol/L (136-145)
[2018-09-19] MEDS: Azithromycin 250 MG TAB PO SCH (18:02)
[2018-09-19] MEDS: Atorvastatin Calcium 20 MG TAB PO SCH (22:04)
[2018-09-20] MEDS: HYDROcodone/Chlorphen Polis 5 ML UDCUP PO SCH ×2 (04:07→16:14)
[2018-09-20 05:33] LABS: Anion Gap 9 mmol/L (10-20); BUN (Urea Nitrogen) 23 mg/dL (8.4-25.7); Calc. Creatinine Clearance 55 mL/min (70-130); Calcium 8.7 mg/dL (7.8-10.44); Carbon Dioxide 32 mmol/L (23-31); Chloride 89 mmol/L (98-107); Estimated GFR-MDRD 47; Glucose 80 mg/dL (83-110); Potassium 3.9 mmol/L (3.5-5.1); Sodium 126 mmol/L (136-145)
[2018-09-20] MEDS: Budesonide 0.5 MG/2 ML NEB INH SCH (06:40)
[2018-09-20] MEDS: Ipratropium Bromide 0.06% Nasal Inhaler 15ml NASAL SCH ×4 (09:04→18:06)
[2018-09-20] MEDS: Famotidine 20 MG TAB PO SCH (09:06)
[2018-09-20] MEDS: Senokot S 8.6-50 MG TAB PO SCH (09:06)
[2018-09-20] MEDS: Cefprozil 250 MG TAB PO SCH (09:06)
[2018-09-20] MEDS: Polyethylene Glycol 3350 17 GM Packet PO SCH (09:06)
[2018-09-20] MEDS: Benzonatate 100 MG CAP PO SCH ×2 (09:06→16:19)
[2018-09-20] MEDS: Aspirin 325 mg Enteric Coated Tablet PO SCH (09:06)
[2018-09-20] MEDS: Insulin Glargine 35 UNITS in Pre-Filled Syringe 1 EACH SC SCH (09:08)
[2018-09-20] MEDS: Amiodarone 200 MG TAB PO SCH (10:15)
--- NOTE | 2018-09-20 11:38 | PRG ---
DATE OF SERVICE: 09/20/2018 SUBJECTIVE: This morning, he is better. No cough. No shortness of breath. OBJECTIVE: VITAL SIGNS: Saturations are 92% on room air, respiratory rate 16, temperature 97, blood pressure 102/54. CHEST: Decreased breath sounds. No wheezing. CARDIAC: Normal S1 and S2. No gallops. ABDOMEN: No masses. LABORATORY DATA: Creatinine 1.44. IMPRESSION: Cough, post coronary artery bypass graft, azotemia, hyponatremia. PLAN: 1. Disposition as per Surgery and Cardiology. 2. Symptomatic treatment for his cough. Job ID: [id number]
[2018-09-20 15:42] VITALS: TEMP 97.8
[2018-09-20 15:53] VITALS: BP 122/56
[2018-09-20] MEDS: Azithromycin 250 MG TAB PO SCH (17:56)
--- NOTE | 2018-09-20 21:22 | PDOC.CTH ---
Cardiology Progress Note - Subjective The pt seen and examined. No overnight events. No cardiac complaints. - Objective Vital Signs Temp Pulse Pulse Pulse Resp BP BP 09/20/18 15:26 97.8 F 86 17 09/20/18 14:55 88 16 09/20/18 14:14 89 84 122/56 L 103/51 L 09/20/18 12:08 97.5 F L 86 17 09/20/18 10:14 85 09/20/18 09:49 85 16 BP Pulse Ox Pulse Ox Pulse Ox 09/20/18 15:26 98/52 L 96 09/20/18 14:55 92 L 09/20/18 14:14 100 96 09/20/18 12:08 106/50 L 96 09/20/18 10:14 103/54 L 09/20/18 09:49 92 L Admit Weight 225 lb Weight 231 lb 1.6 oz 09/19/18 09/20/18 09/21/18 06:59 06:59 06:59 Intake Total 1150 950 Output Total 1045 750 Balance 105 200 - Physical Examination General/Neuro: alert & oriented x3 Neck: no JVD present Lungs: CTA Heart: RRR Abdomen: soft Extremities: other: (No edema) - Telemetry Telemetry Rhythm: SR - Labs Result Diagrams: 09/17/18 05:13 09/20/18 04:47 - Assessment/Plan 1. S/p CABG x4 on 09/08/2018 with OLMEDO-LAD, SVG-OM, Diag, and distal Cx - stable ; On ASA 325mg qd and Statin; Coreg 3.125mg BID is on hold due to dizziness. No more drainage from MSI site; 2. Hx of BMS stent x 2 on 08/08/2018 - On ASA and Plavix 3. HTN - stable with holding Coreg 4. Hyperlipidemia - on statin 5. Insulin depended DM 6. Post-op Afib for 1 hr on 09/12/2018 - remains in SR with Amiodarone 200mg BID since on 08/18/2018; On ASA 325mg qd. No HR changed during synocpal episodes with severe cough. 7. Syncopal episodes with Severe Cough - During each episode, the HR does not decrease. Coreg and Lasix are on hold for now. 8. Hypokalemia 9. hyponatremia MAR reviewed * The pt will f/u with Dr Flannery' office within 2 wks. Review of Systems - Review of Systems Constitutional: reports: no symptoms reported EENTM: reports: no symptoms reported Respiratory: reports: no symptoms reported Cardiac (ROS): reports: no symptoms reported ABD/GI: reports: no symptoms reported : reports: no symptoms reported Musculoskeletal: reports: no symptoms reported
--- NOTE | 2018-09-21 06:31 | DIS ---
DATE OF ADMISSION: 09/08/2018 DATE OF DISCHARGE: 09/20/2018 PRINCIPAL DIAGNOSIS: Coronary artery disease. SECONDARY DIAGNOSES: 1. Atrial fibrillation. 2. Deconditioning. PROCEDURES PERFORMED: Coronary artery bypass grafting x4; left internal mammary artery to the left anterior descending and reverse greater saphenous vein graft from aorta to obtuse marginal, diagonal, and circumflex posterior descending artery on 09/08/2018. HISTORY OF PRESENT ILLNESS AND HOSPITAL COURSE: The patient is an 82-year-old, referred for coronary artery bypass grafting and he was admitted electively. He underwent surgical revascularization. His distal circumflex vessels were very small. Otherwise, his procedure was relatively unremarkable. However, the patient had extensive problems with coughing to the point that he even had 2 syncopal episodes associated with coughing. Even though up to that point he had denied problems while he had no obvious objective sternal instability or deformed or broken wires. He did have some serous drainage from the upper portion of his sternotomy incision that was of some concern. He was observed with fairly aggressive antitussives and that improved. His sodium has trended down but then stabilized. He is now being discharged to rehab. Job ID: [id number]
== END 2018-09-20 18:54 | DRG 236 ==
LOC: SURG A 05:50 → CCU 11:33 → 2NO 09-13 16:39
PROVIDERS: ADMIT Thoracic Surgery (Cardiothoracic Vascular Surgery); ATTEND Thoracic Surgery (Cardiothoracic Vascular Surgery)
PROC: 02100Z9 Bypass Coronary Artery, One Artery from Left Internal Mammary, Open Approach (ICD-10-PCS; principal; 2018-09-08)
PROC: 021209W Bypass Coronary Artery, Three Arteries from Aorta with Autologous Venous Tissue, Open Approach (ICD-10-PCS; 2018-09-08)
PROC: 06BP4ZZ Excision of Right Saphenous Vein, Percutaneous Endoscopic Approach (ICD-10-PCS; 2018-09-08)
PROC: 5A1221Z Performance of Cardiac Output, Continuous (ICD-10-PCS; 2018-09-08)
PROC: 30233R1 Transfusion of Nonautologous Platelets into Peripheral Vein, Percutaneous Approach (ICD-10-PCS; 2018-09-08)
DX: I25.119 Atherosclerotic heart disease of native coronary artery with unspecified angina pectoris (principal); E87.1 Hypo-osmolality and hyponatremia; T81.31XA Disruption of external operation (surgical) wound, not elsewhere classified, initial encounter; I48.91 Unspecified atrial fibrillation; E87.6 Hypokalemia; J42 Unspecified chronic bronchitis; R55 Syncope and collapse; R42 Dizziness and giddiness; E11.9 Type 2 diabetes mellitus without complications; I10 Essential (primary) hypertension; E66.9 Obesity, unspecified; Z87.891 Personal history of nicotine dependence; Z95.5 Presence of coronary angioplasty implant and graft; Z79.82 Long term (current) use of aspirin; Z79.4 Long term (current) use of insulin; Z68.36 Body mass index [BMI] 36.0-36.9, adult; Y83.2 Surgical operation with anastomosis, bypass or graft as the cause of abnormal reaction of the patient, or of later complication, without mention of misadventure at the time of the procedure
CPT/HCPCS: 36415; 36416; 36430; 71045; 80048; 80076; 82805; 82947; 83036; 83880; 85025; 85610; 85730; 86850; 86900; 86901; 93005; 93010; 93798; 94002; 94150; 94640; J0670; J1100; J1642; J1644; J1815; J1825; J1885; J1956; J2001; J2150; J2250; J2405; J2440; J2704; J2720; J2997; J3010; J3370; J3475; J3480; J3490; J7050; J7070; J7620; J7626; P9035; P9045; S0017; S0028

== ENCOUNTER 2020-09-13 12:49 | Emergency (ER) | payer MEDICARE ==
[2020-09-13] MEDS ORDERED: Iopamidol-370 76% 500 ML 1 ML ONE (13:18)
[2020-09-13] MEDS ORDERED: Morphine 4 MG/ML VIAL ONE (13:49)
[2020-09-13 13:59] LABS: #Monocytes 0.5 thou/uL (0.11-0.59); #Neutrophils 7.6 thou/uL (1.40-6.50); %Basophils 0.4 % (0.0-1.0); %Eosinophils 0.4 % (0.0-10.0); %Lymphocytes 11.1 % (21.0-51.0); %Monocytes 5.3 % (0.0-10.0); %Neutrophils 82.8 % (42.0-75.0); Hemoglobin 13.3 g/dL (14.0-18.0); Mean Corpuscular HGB CONC 34.3 g/dL (32.0-36.0); Mean Corpuscular Hemoglobin 32.4 pg (27.0-31.0); Mean Corpuscular Volume 94.5 fL (78.0-98.0); Mean Platelet Volume 8.2 fL (7.4-10.4); Platelet Count 126 thou/uL (130-400); RBC Distribution Width 11.8 % (11.5-14.5); Red Blood Cell (RBC) Count 4.09 mill/uL (4.70-6.10); White Blood Cell (WBC) Count 9.1 thou/uL (4.8-10.8)
[2020-09-13 14:41] LABS: ALT (SGPT) 12 U/L (8-55); AST (SGOT) 21 U/L (5-34); Albumin 4.1 g/dL (3.4-4.8); Alkaline Phosphatase 87 U/L (40-110); Anion Gap 13 mmol/L (10-20); BUN (Urea Nitrogen) 28 mg/dL (8.4-25.7); Bilirubin, Total 0.7 mg/dL (0.2-1.2); Calc. Creatinine Clearance 0 mL/min (70-130); Calcium 9.2 mg/dL (7.8-10.44); Carbon Dioxide 22 mmol/L (23-31); Chloride 103 mmol/L (98-107); Globulin 2.7 g/dL (2.4-3.5); Glucose 220 mg/dL (83-110); Lipase 224 U/L (8-78); Potassium 4.4 mmol/L (3.5-5.1); Protein, Total 6.8 g/dL (5.8-8.1); Sodium 134 mmol/L (136-145)
--- NOTE | 2020-09-13 15:17 | CT ---
CT Abdomen Pelvis W Con: 09/13/2020 2:50 PM CLINICAL INFORMATION: Right upper quadrant abdominal pain COMPARISON: 03/29/2010 TECHNIQUE: Multiple contiguous axial images were obtained and a CT of the abdomen and pelvis with IV contrast. C oronal and sagittal reformats were performed. FINDINGS: Lower Chest: within normal limits. Abdomen: Liver: within normal limits. Bile Ducts: Normal caliber. Gallbladder: Distended without calcified gallstones. Pancreas: within normal limits. Spleen: within normal limits. Adrenals: within normal limits. Kidneys: There is mild right hydronephrosis and a delay in the right nephrogram. There is a punctate nonobstructing 1 mm calcification in the right kidney. A small hypodensity in the left kidney likely represents a cyst. Pelvis: Reproductive Organs: No pelvic masses. Ureters: There is a 4 mm proximal right ureteral calcification. Bladder: within normal limits. Peritoneum: No ascites or free air, no fluid collection. Bowel: Normal caliber. Scattered diverticula in the colon. Mesentery and Retroperitoneum: No enlarged mesenteric or retroperitoneal lymph nodes. Vessels: Atherosclerotic calcifications. Abdominal Wall: within normal limits. Bones: Degenerative and postsurgical changes in the spine. IMPRESSION: 1. Proximal right ureteral calcification with mild right hydronephrosis 2. Additional nonobstructing right renal calcification 3. Diverticulosis 4. Left renal cyst
[2020-09-13 15:54] LABS: Bacteria/HPF None Seen HPF (None Seen); Bilirubin Negative (Negative); Blood, Urine 1+ (Negative); Clarity Clear (Clear); Glucose, Urine (Dipstick) 300 mg/dL (Negative); Ketone, Urine Negative (Negative); Leukocyte Negative Leu/uL (Negative); Nitrite Negative (Negative); Protein, Urine (Dipstick) Negative (Neg-Trace); Specific Gravity, Urine 1.027 (1.002-1.036); Squamous Epithelial 0-3 HPF (0-3); Urobilinogen Normal mg/dL (Less than 2); WBC/HPF 0-3 HPF (0-3)
--- NOTE | 2020-09-15 16:11 | EKG ---
Test Reason : ABDOMINAL PAIN Blood Pressure : / mmHG Vent. Rate : 064 BPM Atrial Rate : 064 BPM P-R Int : 192 ms QRS Dur : 088 ms QT Int : 410 ms P-R-T Axes : 064 007 004 degrees QTc Int : 422 ms Normal sinus rhythm Low voltage QRS Borderline ECG Confirmed by JORDAN NAJERA DO ([id number]), loan expeditor MARICRUZ LOPEZ ([id number] on 09/15/2020 4:11:34 PM Referred By: REINALDO Confirmed By:JORDAN NAJERA DO
== END 2020-09-13 16:25 | disposition home or self-care (01) ==
LOC: ERS 12:49
DX: N13.2 Hydronephrosis with renal and ureteral calculous obstruction (principal); E11.9 Type 2 diabetes mellitus without complications; I10 Essential (primary) hypertension; Z79.4 Long term (current) use of insulin; Z79.899 Other long term (current) drug therapy
CPT/HCPCS: 74177; 80053; 81003; 81015; 83690; 84484; 85025; 93005; 96374; J2270; Q9967